=== PATIENT | male | born 1940 | race Caucasian/White ===

== ENCOUNTER 2018-09-24 09:24 | Inpatient (IN) ==
--- OUTSIDE RECORDS SUMMARY | 2018-09-24 09:27 | External Medical Summary | Continuity of Care Document ---
:1940 Author Name Rohit Bearden, Provider Address Unavailable Unavailable , Care Team Providers Name Role Phone Vinicius Shell [email or web address] [email or web address] [email or web address] Unavailable Unavailable Assessments Assessed Problems:Inguinal hernia, right Problems Hypertension (401.9) (I10) History of chemotherapy (V87.41) (Z92.21) Inguinal hernia, right (550.90) (K40.90) Allergies and Adverse Reactions No Known Drug Allergies (Allergy) Medications Diovan 80 MG Oral Tablet; TAKE 1 TABLET DAILY. Start: 20-Feb-2015 Refills: 0 Valtrex 500 MG Oral Tablet; TAKE 1 TABLET DAILY. Start: 20-Feb-2015 Refills: 0 Procedures History of Inguinal Hernia Repair Status : Completed History of Hemorrhoidectomy Status: Comp leted History of Inguinal Hernia Repair - Recurrent Status: Completed 19-Mar-2015 0:00 Immunizations Immunizations not documented Family History Father Family history of hypertension (V17.49) (Z82.49) Status: Act jayson Sister Family history of malignant neoplasm (V16.9) (Z80.9) Status: Active Brother Family history of malignant neoplasm (V16.9) (Z80.9) Status: Active Social History - Smoking Status Former smoker Plan of Treatment Planned Observations Planned Goals not documented Results No Known Results Results not documented Encounters Appointment; Vinicius Shell M.D. 01-May-2015 13:00 Encounter Diagnosis: Problem not documented
[2018-09-24] MEDS ORDERED: SODIUM CHLORIDE 0.9% 1000ML 1,000 ML IV ONE (09:59)
[2018-09-24] MEDS ORDERED: PANTOprazole 80 MG in DEXTROSE 5% 100 ML IV ONE (10:00)
[2018-09-24 10:13] LABS: Hematocrit (blood only) 32.1 % (42-52); Mean Corpuscular Hgb Conc 34.3 g/dL (32-36); Mean Corpuscular Volume 93.3 fL (80-100); RDW Coefficient of Variation 15.2 % (11.5-14.5); RDW Standard Deviation 51.6 fL (36.4-46.3); Red Blood Count 3.44 M/uL (4.7-6.1); White Blood Count 7.48 K/uL (4.8-10.8)
[2018-09-24 10:15] LABS: Mean Platelet Volume 9.7 fL (7.4-10.4); Platelet Count 65 K/uL (130-400)
[2018-09-24 10:33] LABS: Alanine Aminotransferase 24 U/L (12-78); Albumin Level 3.3 gm/dl (3.4-5.0); Aspartate Aminotransferase 19 U/L (15-37); BUN Creatinine Ratio 36.7 (10-20); Bilirubin Direct 0.1 mg/dl (0-0.2); Blood Urea Nitrogen 51 mg/dl (7-18); Calcium 8.3 mg/dl (8.5-10.1); Carbon Dioxide 24 mmol/L (21-32); Chloride 113 mmol/L (98-107); Creatinine Clr Calc Pharmacy 49.4 ml/min; Est GFR (Non-African American) 48.3; Glucose 129 mg/dl (70-99); Magnesium 1.9 mg/dl (1.8-2.4); Sodium 141 mmol/L (136-145)
[2018-09-24 10:36] LABS: INR 1.1 (0.9-1.1); Partial Thromboplastin Ratio 0.9; Partial Thromboplastin Time 23.6 Seconds (21.0-31.0); Prothrombin Time 11.5 Seconds (9.0-12.0)
[2018-09-24 10:38] LABS: Alkaline Phosphatase 82 U/L (45-117); Bilirubin,Total 0.6 mg/dl (0.2-1); Total Protein 6.4 gm/dl (6.4-8.2); Troponin I < 0.015 ng/ml (0-0.045)
--- NOTE | 2018-09-24 10:42 | XRay Report ---
SINGLE VIEW CHEST CLINICAL HISTORY: Hematemesis. FINDINGS: An AP, portable, upright chest radiograph is compared to study dated 03/19/2015. The heart i s top normal for projection and there is atherosclerotic calcification of the thoracic aorta. There i s bibasilar scarring/atelectasis. No airspace consolidation or large pleural effusion is identified. No pneumothorax is seen. The skeletal structures are osteopenic. The bony thorax is grossly intact. IMPRESSION: No acute cardiopulmonary abnormality. Electronically signed by: Partha Dickson M.D. 09/24/2018 10:41 AM
[2018-09-24] MEDS: PANTOprazole 40 MG in DEXTROSE 5% 100 ML IV SCH ×3 (10:45→20:52)
[2018-09-24 10:50] LABS: Basophils # (auto) 0.03 K/uL (0-0.2); Basophils % (auto) 0.4 %; Eosinophils # (auto) 0.05 K/uL (0-0.5); Eosinophils % (auto) 0.7 %; Immature Granulocytes # (auto) 0.01 K/uL (0.00-0.02); Immature Granulocytes % (auto) 0.1 %; Lymphocytes # (auto) 1.36 K/uL (1.2-3.4); Lymphocytes % (auto) 18.2 %; Microcytosis Present; Monocytes # (auto) 0.57 K/uL (0.11-0.59); Monocytes % (auto) 7.6 %; Neutrophils # (auto) 5.46 K/uL (1.4-6.5); Ovalocytes 1+; Platelet Estimate Decreased (Normal)
--- NOTE | 2018-09-24 11:33 | History & Physical Report ---
Date of Service September 24, 2018 Assessment & Plan (1) GI bleed: Woke up at 2:30am on 09/24 with 3 episodes of hematochezia and 1 episode of melena. Went back to bed. Presented to the ED in the morning after further coffee ground emesis. Had colonoscopy over 10 years ago while living in [place] - has not had GI issues in the past, no history of PUD, gastric ulcers, NSAID use, alcohol use. - Hemoglobin was 11.0, baseline appears to be around 12 - Trend H&H every 6 hours - GI consulted - Spoke with Dr. Linares - Continue Protonix gtt, consider switch to famotidine later today as protonix on backorder. 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 Barr as an outpatient. - Platelet count was 65 on admission. Per patient, baseline is ~50. - Transfuse plt for < 50k. - Consider oncology consult if worsening a.m. labs (3) HTN (hypertension): BP stable. Holding antihypertensives with acute GI bleed. - Monitor (4) HLD (hyperlipidemia): - Continue pravastatin 10 mg daily (5) History of shingles: - Hold valacyclovir (6) DVT prophylaxis: -Teds, no chemical prophylaxis in the setting of GI bleed History of Present Illness Primary Care Provider: NO PCP This is a 78 yo M with PMHx of ALL [facility] in 2012, status post chemotherapy now in remission, HTN, HLD, inguinal hernia, history of shingles and remote history of smoking 2 ppd for his entire adult life and quit in 1999, who presents with acute onset of multiple episodes of melena and hematemesis with bright red, dark red and black coffee-ground emesis x1 day. Patient reports that he was in his normal state of health yesterday. He woke up this morning and felt acutely nauseous proceeded to vomit x3 and had several bowel movements with dark tarry stools. He denies any abdominal pain, bloating or distention. He also denies lightheadedness, dizziness, chest pain, palpitation or flutter. He notes that since being in the ER and getting up to ambulate to the bathroom that he has been noticing increased shortness of breath. He does not normally wear oxygen at baseline. Patient has not eating anything since last evening where he consumed a steak. He drinks alcohol about once every other week, last alcoholic drink was a part of beer 4 days ago. He denies use of NSAIDs routinely. He took his medications yesterday. Hemoglobin equals 11, baseline around 12 Pantoprazole drip started in the ER Allergies Allergy/AdvReac Type Severity Reaction Status Date / Time No Known Allergies Allergy Unverified 09/24/18 10:41 Home Medications Home Medications Medication Instructions Recorded Confirmed Type pravastatin 10 mg PO DAILY 03/31/18 03/31/18 History valacyclovir [Valtrex] 500 mg PO DAILY 03/31/18 03/31/18 History valsartan [Diovan] 80 mg PO DAILY 03/31/18 03/31/18 History Past Med/Surg History Medical History History of shingles HLD (hyperlipidemia) HTN (hypertension) ALL (acute lymphoid leukemia) in remission History of smoking GI bleed Recurrent inguinal hernia History of inguinal hernia (Resolved) Surgical History Hx of inguinal hernia repair (Resolved) Family History Other Family history non-contributory Social History Preferred Language: Mongolian Communication Ability: Effective Manager Produce Required: No Beliefs That Will Affect Care: None Current Living Situation: Alone Other Information That Helps Us Care for You: No Feels Safe at Home: Yes Safety Concerns: Feels Safe At This Time Smoking Status: Former smoker Smoking End Date: ~1999 Hx Alcohol Use: Yes Alcohol type: beer and hard liquor Hx Substance Use: No Review of Systems Review of Systems: Constitutional: No fever, sweats or chills Eyes: No diplopia, no worsening or blurred vision ENT: normal hearing, no trouble swallowing Respiratory: No cough, sputum, dyspnea at rest or on exertion Cardiovascular: No chest pain, tightness or palpitations Abdomen: As per HPI, + Hematemesis, + melena, no pain Musculoskeletal: No joint pain, calf pain, swelling Neurologic: No weakness, numbness/tingling, or balance problems Psychiatric: No anxiety or depression Skin: No rash or itch Physical Exam Physical Exam: General: awake, alert, no apparent distress Head: Normocephalic, atraumatic ENT: PERRL, EOMI, no pharyngeal exudate, mucous membranes moist Chest: Clear to auscultation, on room air, no adventitious breath sounds Cardiac: Regular rate and rhythm, no murmur, no JVD, normal peripheral pulses, good capillary refill Abdominal: Hypoactive bowel sounds, nondistended, soft, nontender to palpation, no rebound, guarding or tenderness Extremities: Normal inspection, no peripheral edema or erythema, calfs nontender to palpation Psych: Normal mood and affect Neuro: AAO x 3, strength intact bilaterally and related 5/5, no motor deficits, speech is clear, no peripheral sensory deficits Skin: no rash or erythema Results & Data Vital Signs (Past 12 Hours) Vital Signs Temp Pulse Resp BP Pulse Ox 09/24/18 09:33 36.8 C 130 H 22 114/72 95 Diagnostic Findings SINGLE VIEW CHEST CLINICAL HISTORY: Hematemesis. FINDINGS: An AP, portable, upright chest radiograph is compared to study dated 03/19/2015. The heart is top normal for projection and there is atherosclerotic calcification of the thoracic aorta. There is bibasilar scarring/atelectasis. No airspace consolidation or large pleural effusion is identified. No pneumothorax is seen. The skeletal structures are osteopenic. The bony thorax is grossly intact. IMPRESSION: No acute cardiopulmonary abnormality. Code Status & VTE Plan Code Status Full code-discussed with patient at bedside PG Care Time/CCT Total # of Minutes Spent Total Time Spent with Patient: Total time spent is greater than 50% in coordination of care (as documented) at patient's floor/unit and/or counseling patient:
[2018-09-24] MEDS ORDERED: ONDANSETRON INJ 2 MG/ML 2 ML VIAL IV PRN (14:46)
[2018-09-24] MEDS ORDERED: ACETAMINOPHEN 325 MG TAB PO PRN (14:46)
[2018-09-24] MEDS: SODIUM CHLORIDE 0.9% 1000ML 1,000 ML IV SCH ×2 (15:01→22:26)
[2018-09-24 17:07] LABS: Hematocrit (blood only) 29.9 % (42-52)
--- NOTE | 2018-09-24 17:53 | Emergency Department Note ---
Entered by Jenni Romero acting as a scribe for ED Provider Note Name: Luis Greer Age: 78 Arrives Via: Ambulatory Informant: Patient CC: Blood in vomit HPI: A 78 year old male arrives for evaluation of an episode of vomiting blood 8 hours ago. The patient reports that he vomited blood 3 times earlier this morning, and he described the vomit as really dark. The patient notes he feels a little nauseous at the moment but denies any recent falls or injuries, abdominal pain, headache, shortness of breath, fever/chills, chest pain, and urinary issues. The patient also denies taking blood thinners. The patient states he takes naproxen for headaches, but he notes he has not done this for 3 weeks. The patient reports that he has had 52 blood transfusions for platelets in the past. The patient denies any family history of bleeding issues. ROS: See above HPI for pertinent positives & negatives. A total of 10 systems reviewed and were otherwise negative. Past Medical History: ALL (in remission), HLD, HTN, Shingles Past Surgical History: Inguinal hernia repair Family History: No significant family history Social History: Former smoker, occasional drinker. Retired, no drug use. Home Medications: pravastatin, Diovan Allergies NKDA Physical: Vitals: BP 114/72. Pulse 130. Resp 22. Temp 36.8. O2 Sat 95. Room Air Exam: GENERAL: Patient is tired appearing and in no acute distress. EYES: No scleral icterus, unremarkable pupils. ENT: Mucous membranes dry, no nasal congestion. NECK: No masses appreciated, no meningismus, trachea is midline. RESPIRATORY: No dyspnea. Clear to auscultation and equal bilaterally. No wheeze, no rhonchi. CARDIOVASCULAR: Tachycardic. Regular rhythm. No murmurs, rubs, gallops appreciated. GASTROINTESTINAL: Abdomen soft, non-tender, no peritonitis. Bowel sounds positive. No masses appreciated. BACK: No midline tenderness, no CVA tenderness EXTREMITIES: Normal motion all extremities, no cyanosis, no edema. NEUROLOGIC: Alert and oriented, no acute motor or sensory deficits, no focal weakness, cranial nerves grossly intact. SKIN: No rash, no jaundice, no diaphoresis. RECTAL: Heme positive, black stool. Normal perirectal area. ED Course: Prior Medical Record, Triage/Nursing Notes, Medications, Allergies reviewed by Me Vital Signs: reviewed and remarkable for Labs: Reviewed and remarkable for tachy Interventions: saline lock, nss bolus 1 L IV, protonix gtt Imaging: Radiology results as stated below per my review and the radiologist's interpretation: SINGLE VIEW CHEST CLINICAL HISTORY: Hematemesis. FINDINGS: An AP, portable, upright chest radiograph is compared to study dated 03/19/2015. The heart is top normal for projection and there is atherosclerotic calcification of the thoracic aorta. There is bibasilar scarring/atelectasis. No airspace consolidation or large pleural effusion is identified. No pneumothorax is seen. The skeletal structures are osteopenic. The bony thorax is grossly intact. IMPRESSION: No acute cardiopulmonary abnormality. Electronically signed by: Partha Dickson M.D. 09/24/2018 10:41 AM EKG: Per My Interpretation: Indication Tachy: Sinus tach 122 without ectopy nor ischemia qtc 433 Course: 0950: Past medical records reviewed. The patient was evaluated in room B12B. A complete history and physical exam was performed. 1023: I performed a rectal exam on the patient. 1036: I discussed the case with Dr. Timmons. Dr. Linares deems it is reasonable to monitor the patient here due to labs. 1104: I discussed the patient's case with Camilla of Dr. Baeza-[facility]. Dr. Baeza will further evaluate the patient. Blood pressure: Normal. No Referral necessary Disposition: Hospitalization Differentials: Etiologies such as diverticulosis, AVM, coagulopathy, colitis, inflammatory bowel disease, malignancy, Ernestine-Mcdonald tear, esophagitis, peptic ulcer disease, variceal bleed, gastritis, epistaxis, fissure, hemorrhoids, as well as others were entertained. 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 Some red to stool but mostly black. He is comfortable without further symptoms. Mild tachy thus given fluids as he appears a bit on dehydrated side. HR improved nicely. HgB 11 where base is about 12 so no indication for transfusion given BP good and HR improved with IV fluids. Platelets actually a bit up from his baseline. Labs otherwise with BUn elevation consistent with GI bleed an dehydration. EKG without ischemia. Otherwise looks well. No recent blood thinner use and last naproxen was 3 weeks ago. Reviewed with GI and Onc who feel it reasonable to keep patient here at this time and monitor. Hospitalist consulted for further management. Abdomen soft and I do not feel that imaging indicated. Impression: Acute Upper GI Bleed Tachycardia Thrombocytopenia The scribe's documentation has been prepared under my direction and personally reviewed by me in its entirety. I confirm that the note above accurately reflects all work, treatment, procedures, and medical decision making performed by me. Amos Aburto MD Impression & Plan Acute upper gastrointestinal bleeding, Thrombocytopenia, Tachycardia Past Med/Surg History Medical History History of shingles HLD (hyperlipidemia) HTN (hypertension) ALL (acute lymphoid leukemia) in remission History of smoking GI bleed Recurrent inguinal hernia History of inguinal hernia (Resolved) Surgical History Hx of inguinal hernia repair (Resolved) Family History Other Family history non-contributory Social History Preferred Language: Turkmen Communication Ability: Effective Spiral Binder Required: No Beliefs That Will Affect Care: None Current Living Situation: Alone Other Information That Helps Us Care for You: No Feels Safe at Home: Yes Safety Concerns: Feels Safe At This Time Smoking Status: Former smoker Smoking End Date: ~1999 Hx Alcohol Use: Yes Alcohol type: beer and hard liquor Hx Substance Use: No Results & Data Vital Signs Vital Signs - 24 hr 09/24/18 09:33 09/24/18 09:59 09/24/18 10:43 Temperature 36.8 C Temperature Source Oral Oral Sepsis Recent Fever Within 48 Hours No Sepsis New/Unexplained Change in Mental Status No Sepsis Action Taken by Nursing No Action Required Pulse Rate 130 H Pulse Rate [Right Finger] 94 H Respiratory Rate 22 18 Respiratory Effort / Characteristics Non-Labored Respiratory Depth Normal Normal Blood Pressure 114/72 Blood Pressure [Left Arm] 114/64 Blood Pressure Mean 86 Blood Pressure Mean [Left Arm] 80 Blood Pressure Position Sitting Pulse Oximetry 95 96 Oxygen Delivery Method Room Air Laboratory Data Result diagrams: 09/24/18 16:59 09/24/18 10:05 Lab Results 09/24/18 09/24/18 09/24/18 Range/Units 10:05 10:05 10:05 WBC 7.48 (4.8-10.8) K/uL RBC 3.44 L (4.7-6.1) M/uL Hgb 11.0 L (14.0-18.0) g/dL Hct 32.1 L (42-52) % MCV 93.3 (80-100) fL MCH 32.0 (25-34) pg MCHC 34.3 (32-36) g/dL RDW Std Deviation 51.6 H (36.4-46.3) fL RDW Coeff of Tere 15.2 H (11.5-14.5) % Plt Count 65 L (130-400) K/uL MPV 9.7 (7.4-10.4) fL Immature Gran % (Auto) 0.1 % Neut % (Auto) 73.0 % Lymph % (Auto) 18.2 % Mclennan % (Auto) 7.6 % Eos % (Auto) 0.7 % Baso % (Auto) 0.4 % Immature Gran # (Auto) 0.01 (0.00-0.02) K/uL Neut # (Auto) 5.46 (1.4-6.5) K/uL Lymph # (Auto) 1.36 (1.2-3.4) K/uL Mclennan # (Auto) 0.57 (0.11-0.59) K/uL Eos # (Auto) 0.05 (0-0.5) K/uL Baso # (Auto) 0.03 (0-0.2) K/uL Platelet Estimate Decreased L (Normal) Microcytosis Present Ovalocytes 1+ PT 11.5 (9.0-12.0) Seconds INR 1.1 (0.9-1.1) APTT 23.6 (21.0-31.0) Seconds PTT Ratio 0.9 Sodium 141 (136-145) mmol/L Potassium 5.0 (3.5-5.1) mmol/L Chloride 113 H (98-107) mmol/L Carbon Dioxide 24 (21-32) mmol/L Anion Gap 4.0 (3-11) BUN 51 H (7-18) mg/dl Creatinine 1.38 (0.6-1.4) mg/dl Est Cr Clr Drug Dosing 49.4 ml/min Est GFR ( Amer) 56.0 Est GFR (Non-Af Amer) 48.3 BUN/Creatinine Ratio 36.7 H (10-20) Glucose 129 H (70-99) mg/dl Calcium 8.3 L (8.5-10.1) mg/dl Magnesium 1.9 (1.8-2.4) mg/dl Total Bilirubin 0.6 (0.2-1) mg/dl Direct Bilirubin 0.1 (0-0.2) mg/dl AST 19 (15-37) U/L ALT 24 (12-78) U/L Alkaline Phosphatase 82 (45-117) U/L Troponin I < 0.015 (0-0.045) ng/ml Total Protein 6.4 (6.4-8.2) gm/dl Albumin 3.3 L (3.4-5.0) gm/dl Lipase 190 (73-393) U/L Blood Type Antibody Screen 09/24/18 Range/Units 10:21 WBC (4.8-10.8) K/uL RBC (4.7-6.1) M/uL Hgb (14.0-18.0) g/dL Hct (42-52) % MCV (80-100) fL MCH (25-34) pg MCHC (32-36) g/dL RDW Std Deviation (36.4-46.3) fL RDW Coeff of Tere (11.5-14.5) % Plt Count (130-400) K/uL MPV (7.4-10.4) fL Immature Gran % (Auto) % Neut % (Auto) % Lymph % (Auto) % Mclennan % (Auto) % Eos % (Auto) % Baso % (Auto) % Immature Gran # (Auto) (0.00-0.02) K/uL Neut # (Auto) (1.4-6.5) K/uL Lymph # (Auto) (1.2-3.4) K/uL Mclennan # (Auto) (0.11-0.59) K/uL Eos # (Auto) (0-0.5) K/uL Baso # (Auto) (0-0.2) K/uL Platelet Estimate (Normal) Microcytosis Ovalocytes PT (9.0-12.0) Seconds INR (0.9-1.1) APTT (21.0-31.0) Seconds PTT Ratio Sodium (136-145) mmol/L Potassium (3.5-5.1) mmol/L Chloride (98-107) mmol/L Carbon Dioxide (21-32) mmol/L Anion Gap (3-11) BUN (7-18) mg/dl Creatinine (0.6-1.4) mg/dl Est Cr Clr Drug Dosing ml/min Est GFR ( Amer) Est GFR (Non-Af Amer) BUN/Creatinine Ratio (10-20) Glucose (70-99) mg/dl Calcium (8.5-10.1) mg/dl Magnesium (1.8-2.4) mg/dl Total Bilirubin (0.2-1) mg/dl Direct Bilirubin (0-0.2) mg/dl AST (15-37) U/L ALT (12-78) U/L Alkaline Phosphatase (45-117) U/L Troponin I (0-0.045) ng/ml Total Protein (6.4-8.2) gm/dl Albumin (3.4-5.0) gm/dl Lipase (73-393) U/L Blood Type O Positive Antibody Screen NEGATIVE Administered Medications Pantoprazole Sodium 40 mg/ (Dextrose) 100 mls @ 20 mls/hr IV Q5H [facility] Stop: 10/24/18 10:14 Last Admin: 09/24/18 16:00 Dose: 20 mls/hr Documented by: [id number] Infusion: 09/24/18 14:47 Dose: 0 mls/hr Documented by: [id number] Admin: 09/24/18 10:45 Dose: 20 mls/hr Documented by: [id number] Sodium Chloride (Nss 1000ml) 1,000 mls @ 125 mls/hr IV .Q8H [facility] Stop: 09/25/18 14:45 Last Admin: 09/24/18 15:01 Dose: 125 mls/hr Documented by: [id number] Discontinued Medications Pantoprazole Sodium 80 mg/ (Dextrose) 120 mls @ 480 mls/hr IV NOW ONE Stop: 09/24/18 10:14 Last Infusion: 09/24/18 10:58 Dose: 0 mls/hr Documented by: [id number] Admin: 09/24/18 10:43 Dose: 480 mls/hr Documented by: [id number] Sodium Chloride (Nss 1000ml) 1,000 mls @ 999 mls/hr IV .Q1H1M ONE Stop: 09/24/18 10:59 Last Infusion: 09/24/18 11:12 Dose: 0 mls/hr Documented by: [id number] Admin: 09/24/18 10:10 Dose: 999 mls/hr Documented by: [id number] Discharge Plan Visit Data *Final* Discharge Date/Time: 09/24/18 14:15 Chief Complaint: GI Bleed Stated Complaint: VOMITING BLOOD, BOWEL MOVEMENT BLACK ED Provider: Amos Aburto Discharge Problem: Acute upper gastrointestinal bleeding, Thrombocytopenia, Tachycardia Patient Disposition: Admitted As Inpatient Discharge Instructions Interventions: ED Discharge Assessment Last Done: 09/24/18 14:15 The scribe's documentation has been prepared under my direction and personally reviewed by me in its entirety. I confirm that the note above accurately reflects all work, treatment, procedures, and medical decision making performed by me.
[2018-09-24 23:34] LABS: Hematocrit (blood only) 27.9 % (42-52); Hemoglobin 9.5 g/dL (14.0-18.0)
[2018-09-25] MEDS: PANTOprazole 40 MG in DEXTROSE 5% 100 ML IV SCH ×5 (00:39→20:14)
[2018-09-25] MEDS: SODIUM CHLORIDE 0.9% 1000ML 1,000 ML IV SCH (05:49)
[2018-09-25 06:06] LABS: Hematocrit (blood only) 27.5 % (42-52); Hemoglobin 9.2 g/dL (14.0-18.0); Mean Corpuscular Hgb Conc 33.5 g/dL (32-36); Mean Corpuscular Volume 93.2 fL (80-100); RDW Coefficient of Variation 15.6 % (11.5-14.5); RDW Standard Deviation 52.6 fL (36.4-46.3); Red Blood Count 2.95 M/uL (4.7-6.1); White Blood Count 4.65 K/uL (4.8-10.8)
[2018-09-25 06:07] LABS: Mean Platelet Volume 9.9 fL (7.4-10.4); Platelet Count 54 K/uL (130-400)
[2018-09-25 06:16] LABS: INR 1.1 (0.9-1.1); Prothrombin Time 11.5 Seconds (9.0-12.0)
[2018-09-25 06:45] LABS: BUN Creatinine Ratio 35.2 (10-20); Calcium 7.8 mg/dl (8.5-10.1); Creatinine Clr Calc Pharmacy 54.5 ml/min; Est GFR (African American) 63.1; Est GFR (Non-African American) 54.4; Potassium 3.9 mmol/L (3.5-5.1)
[2018-09-25 06:53] LABS: Albumin Globulin Ratio 1.2 (0.9-2); Bilirubin,Total 0.8 mg/dl (0.2-1); Globulin 2.6 gm/dl (2.5-4.0); Total Protein 5.6 gm/dl (6.4-8.2)
--- NOTE | 2018-09-25 07:32 | Anesthesiology Consultation ---
Date of Service September 25, 2018 Assessment & Plan (1) Encounter for pre-operative examination: Chart Review Chart Review: Acceptable Risk for Surgery Consults Requested none ASA ASA3 Proposed Anesthesia Anesthesia Type: MAC Risk / Benefits Reviewed With: PT / POA / Parent / Guardian, Accepts Plan and Informed Consent Obtained History Surgery Operation Date: 09/25/18 09:00 Proposed Procedures p Esophagogastroduodenoscopy - Vadim G. Case, DO Height/Weight Height: 5 ft 10 in Weight: 92 kg Allergies Allergy/AdvReac Type Severity Reaction Status Date / Time No Known Allergies Allergy Unverified 09/24/18 10:41 Medications Home Medications Medication Instructions Recorded Confirmed Last Taken pravastatin 10 mg PO DAILY 03/31/18 03/31/18 Unknown valacyclovir [Valtrex] 500 mg PO DAILY 03/31/18 03/31/18 Unknown valsartan [Diovan] 80 mg PO DAILY 03/31/18 03/31/18 Unknown Active Medications Generic Name Dose Route Start Last Admin Trade Name Freq PRN Reason Stop Dose Admin Pantoprazole Sodium 40 mg/ 100 mls @ 20 mls/hr 09/24/18 10:15 09/25/18 05:48 Dextrose IV 10/24/18 10:14 20 mls/hr Q5H EMMA Administration Sodium Chloride 1,000 mls @ 125 mls/hr 09/24/18 14:46 09/25/18 05:49 Nss 1000ml IV 09/25/18 14:45 125 mls/hr .Q8H EMMA Administration Pravastatin Sodium 10 mg 09/25/18 09:00 09/25/18 08:24 Pravachol PO 10/25/18 08:59 10 mg DAILY EMMA Administration Past Medical History Medical History History of shingles HLD (hyperlipidemia) HTN (hypertension) ALL (acute lymphoid leukemia) in remission GI bleed Recurrent inguinal hernia History of inguinal hernia (Resolved) Exercise / Class Metabolic Activity II 4-5 Yardwork/Stairs/Walk up hill Past Family History Family History Other Family history non-contributory Past Surgical History Surgical History Hx of inguinal hernia repair (Resolved) Past Anesthesia History No Hx of Anesthesia Complications and No Family Hx of Anesthesia Complications History of PONV No Hx of PONV and No Hx of Motion Sickness Social History Smoking Status: Former smoker Smoking End Date: ~1999 Hx Alcohol Use: Yes Alcohol type: beer and hard liquor Alcohol Intake Frequency Comment: ~ 1 drink/week Hx Substance Use: No Physical Exam Vital Signs Last Vital Signs Temp 97.9 F 09/25/18 07:15 Pulse 75 09/25/18 07:59 Resp 16 09/25/18 07:15 BP 128/76 09/25/18 07:15 Pulse Ox 98 09/25/18 07:15 ENMT Mouth: no dentition abnormality Thyromental Distance: > or= 3.5 Finger Breadths Mallampati Class: II Neck normal visual inspection Respiratory normal respiratory effort Auscultation: lungs clear to auscultation bilaterally Cardiovascular Rate/Rhythm: regular rate and regular rhythm Testing Laboratory Results 09/25/18 05:39 09/25/18 05:39 PT 11.5 Seconds (9.0-12.0) 09/25/18 05:39 INR 1.1 (0.9-1.1) 09/25/18 05:39 APTT 23.6 Seconds (21.0-31.0) 09/24/18 10:05 Blood Type O Positive 09/24/18 10:21 Antibody Screen NEGATIVE 09/24/18 10:21 Electrocardiogram Date: 09/24/18 Sinus tachycardia, rate 122 bpm Low voltage QRS Inferior infarct , age undetermined Possible Anterolateral infarct , age undetermined Abnormal ECG No previous ECGs available Chest X-Ray Date: 09/24/18 Findings: + NAD
--- NOTE | 2018-09-25 08:50 | History & Physical Report ---
Date of Service September 25, 2018 Assessment & Plan (1) Acute upper gastrointestinal bleeding: (2) Melena: (3) Acute blood loss anemia: Continue Protonix gtt. NPO Proceed with EGD now for further evaluation of bleeding source History of Present Illness Chief Complaint: "I threw up blood, and have been having black stools." Primary Care Provider: NO PCP Mr. Greer is a pleasant 78 yo CM who was in his normal state of health on Wednesday. Early Wednesday morning, he woke up with nausea, and subsequently had 2 episodes of bright red and coffee ground emesis. He states that approximately 1 hour later he developed dark tarry stools, and has been having them every 30-40 minutes since that time. He presented to the ER for further evaluation, and was noted to have a Hgb of 11. He was subsequently admitted and placed on a Protonix gtt. His H/H has continued to fall, and he continues to have dark tarry stools. He does admit to taking Naproxen as needed for headaches, but states that it is minimal approximately 2-3 times per week. He denies lightheadedness, dizziness, syncope, abdominal pain, nausea, further vomiting, diarrhea, or family history of GI malignancies. He states that he has minimal home symptoms of GERD, that is controlled with OTC antacids 1-2 times per month. He denies any further complaints. Allergies Allergy/AdvReac Type Severity Reaction Status Date / Time No Known Allergies Allergy Unverified 09/24/18 10:41 Home Medications Home Medications Medication Instructions Recorded Confirmed Type pravastatin 10 mg PO DAILY 03/31/18 03/31/18 History valacyclovir [Valtrex] 500 mg PO DAILY 03/31/18 03/31/18 History valsartan [Diovan] 80 mg PO DAILY 03/31/18 03/31/18 History Past Med/Surg History Medical History History of shingles HLD (hyperlipidemia) HTN (hypertension) ALL (acute lymphoid leukemia) in remission History of smoking GI bleed Recurrent inguinal hernia History of inguinal hernia (Resolved) Surgical History Hx of inguinal hernia repair (Resolved) Family History Other Family history non-contributory Social History Preferred Language: Tanzanian Communication Ability: Effective Layout Mechanic Required: No Beliefs That Will Affect Care: None Current Living Situation: Alone Other Information That Helps Us Care for You: No Feels Safe at Home: Yes Safety Concerns: Feels Safe At This Time Smoking Status: Former smoker Smoking End Date: ~1999 Hx Alcohol Use: Yes Alcohol type: beer and hard liquor Hx Substance Use: No Review of Systems All systems reviewed & are unremarkable except as noted in HPI & below Physical Exam Constitutional: WD/WN, vitals as above Respiratory: normal respiratory effort, lungs clear to auscultation Cardiovascular: RRR, no murmur, no edema Gastrointestinal (Abdomen): normal bowel sounds, soft, nontender, no hepatosplenomegaly Results & Data Vital Signs (Past 12 Hours) Vital Signs Temp Pulse Pulse Resp BP Pulse Ox 09/25/18 07:59 75 09/25/18 07:15 36.6 C 78 16 128/76 98 09/25/18 03:39 36.5 C 78 16 111/69 97 09/25/18 00:43 86 09/24/18 23:33 36.4 C L 100 H 16 130/78 97
[2018-09-25] MEDS ORDERED: PRAVASTATIN SOD 10 MG TAB PO SCH (09:00)
[2018-09-25] MEDS ORDERED: ATROPINE SULFATE 0.1 MG/ML 10ML SYR IV PRN (09:28)
[2018-09-25] MEDS ORDERED: ePHEDrine sulfate 50 MG/ML AMP IV PRN (09:28)
[2018-09-25] MEDS ORDERED: LIDOCAINE HCL 2% 2 ML VIAL/AMP(20MG/ML) INFIL ONE (09:31)
[2018-09-25] MEDS ORDERED: PROPOFOL IV EMULSION 10 MG/ML 20 ML VIAL IV ONE ×2 (09:31→09:54)
--- NOTE | 2018-09-25 10:13 | GI REPORT ---
Patient Name: Luis Greer Procedure Date: 09/25/2018 8:28 AM Date of : 1940 Admit Type: Inpatient Age: 78 Gender: Male Attending MD: Vadim Linares DO Procedure: Upper GI endoscopy Providers: Vadim Linares DO Referring MD: Carmine Baeza Md Indications: Acute post hemorrhagic anemia, Melena Medicines: Monitored Anesthesia Care Complications: No immediate complications. Estimated Blood Loss: Estimated blood loss: none. Procedure: Pre-Anesthesia Assessment: - Prior to the procedure, a History and Physical was performed, and patient medications and allergies were reviewed. The patient's tolerance of previous anesthesia was also reviewed. The risks and benefits of the procedure and the sedation options and risks were discussed with the patient. All questions were answered, and informed consent was obtained. Prior Anticoagulants: The patient has taken no previous anticoagulant or antiplatelet agents. ASA Grade Assessment: III - A patient with severe systemic disease. After reviewing the risks and benefits, the patient was deemed in satisfactory condition to undergo the procedure. After obtaining informed consent, the endoscope was passed under direct vision. Throughout the procedure, the patient's blood pressure, pulse, and oxygen saturations were monitored continuously. The Scope was introduced through the mouth, and advanced to the second part of duodenum. The upper GI endoscopy was accomplished without difficulty. The patient tolerated the procedure well. Findings: Grade I varices were found in the lower third of the esophagus. They were 4 mm in largest diameter. A single 20 mm mucosal papule (nodule) with bleeding was found at the gastroesophageal junction. Biopsies were taken with a cold forceps for histology. Area was successfully injected with 4 mL of a 1:10,000 solution of epinephrine for hemostasis. Fulguration to stop the bleeding by heater probe was successful. A medium-sized hiatal hernia was present. Localized moderate inflammation characterized by congestion (edema) was found in the gastric antrum. Patchy moderately erythematous mucosa without active bleeding and with no stigmata of bleeding was found in the first portion of the duodenum. A single 20 mm mucosal nodule with a localized distribution was found in the second portion of the duodenum. Impression: - Grade I esophageal varices. - A single mucosal papule (nodule) found in the stomach. Biopsied. Injected. Treated with a heater probe. - Medium-sized hiatal hernia. - Gastritis. - Erythematous duodenopathy. - Mucosal nodule found in the duodenum. Recommendation: - Return patient to [facility] for ongoing care. - Advance diet as tolerated. - Continue present medications. - Perform a CT scan (computed tomography) of abdomen with contrast and pelvis with contrast today. Vadim Linares, DO 09/25/2018 10:12:52 AM This report has been signed electronically. Note Initiated On: 09/25/2018 8:28 AM Number of Addenda: 0 I attest to the content of the Intraoperative Record and orders documented therein, exceptions below {[id number]}
--- NOTE | 2018-09-25 10:32 | Anesthesiology Progress Note ---
Date of Service September 25, 2018 Anesthesia Post Procedure Vital Signs Vital Signs: Temp Pulse Pulse Pulse Resp BP Pulse Ox 09/25/18 10:25 84 15 135/66 100 09/25/18 10:15 86 16 135/78 100 09/25/18 10:08 97.9 F 86 10 L 114/71 100 09/25/18 07:59 75 09/25/18 07:15 97.9 F 78 16 128/76 98 09/25/18 03:39 97.7 F 78 16 111/69 97 09/25/18 00:43 86 09/24/18 23:33 97.5 F L 100 H 16 130/78 97 09/24/18 18:37 98.1 F 87 17 113/71 97 09/24/18 14:35 98.1 F 107 H 16 149/83 H 98 09/24/18 12:41 93 H 18 106/62 98 09/24/18 10:43 94 H 18 114/64 96 Transfer of Care Handoff Completed per policy Notes Mental Status: alert / awake / arousable and participated in evaluation Patient Amnestic to Procedure: Yes Nausea / Vomiting: adequately controlled Pain: adequately controlled Airway Patency, RR, SpO2: stable & adequate BP & HR: stable & adequate Hydration State: stable & adequate Anesthetic Complications: no major complications apparent and Pt Satisfied with anesthetic care
[2018-09-25] MEDS ORDERED: IOVERSOL 100ml IV PRN (15:02)
--- NOTE | 2018-09-25 16:03 | CT Scan Report ---
CT SCAN OF THE ABDOMEN AND PELVIS WITH IV CONTRAST CLINICAL HISTORY: Upper abdominal pain. Clinical concern for cirrhosis. COMPARISON STUDY: No priors. TECHNIQUE: Following the IV administration of 94 cc of Optiray 320, CT scan of the abdomen and pelvi s is performed from the lung bases to the proximal femora. Images are reviewed in the axial, sagittal , and coronal planes. IV contrast was administered without complication. Oral contrast was utilized. A dose lowering technique was utilized adhering to the principles of ALARA. CT DOSE: 647.74 mGy.cm FINDINGS: Lung bases: The heart is top normal in size and without pericardial effusion. The coronary arteries a re densely calcified. Emphysematous change is suspected. There is bibasilar scarring/atelectasis. No airspace consolidation or pleural effusion is seen. Scattered calcified granulomas are observed. Ther e is a moderate hiatal hernia. Liver: The contrast-enhanced liver is normal in size and heterogeneous in attenuation. Nodularity of the surface contour indicates cirrhosis. There is hypertrophy of the left lobe and caudate. Scattered renal cysts measure up to 2.1 cm. Additional subcentimeter hepatic hypodensities also likely represe nt cysts but are too small for definitive characterization. There is no intrahepatic biliary ductal d ilatation. There is nonocclusive thrombus identified within the splenic vein (image #159), the superi or mesenteric vein below the confluence (image #181, and the main portal vein extending into the intr ahepatic portal veins (image #159). There is approximately 50% luminal narrowing of the main portal v ein. The intrahepatic portal venous branches appear patent. The hepatic veins are patent. A calcified granuloma is noted in the right lobe. Gallbladder: Unremarkable. Spleen: The spleen is enlarged measuring 17.6 cm in length. Foci of parenchymal scarring/fibrosis are suggested. Pancreas: Unremarkable. Adrenal glands: Unremarkable. Kidneys: The contrast enhanced kidneys demonstrate cortical atrophy and are without hydronephrosis. T he kidneys enhance symmetrically. There are numerous bilateral nonobstructing renal calculi which kel sure up to 5 mm. Scattered subcentimeter cortical hypodensities likely represent cysts but are too sm all for definitive characterization. Abdominal vasculature: There is advanced atherosclerotic calcification and mild ectasia of the abdomi nal aorta. Intraluminal thrombus causes approximately 50% luminal narrowing just above the iliac bifu rcation. Bowel: There is advanced colonic diverticulosis without CT evidence of acute diverticulitis. Enteric contrast reaches the right colon. No bowel obstruction is seen. Mild wall thickening is noted involvi ng the rectosigmoid colon. There is significant wall thickening and edema identified in the cecum and ascending colon, as well as involving the distal small bowel. This is greatest involving the distal/ terminal ileum. A duodenal lipoma is incidentally noted on image #195. The appendix is well-visualiz ed and normal. Peritoneum: There is a trace perihepatic ascites. No intraperitoneal free air is seen. Lymphadenopathy: None. Pelvic viscera: The prostate gland is enlarged and heterogeneous, measuring 5.6 cm in transverse diam eter. There is median lobe hypertrophy. The bladder is mildly distended. The bladder wall is thickene d and trabeculated indicating chronic outlet obstruction. A 3.3 cm diverticulum containing a bladder calculus is seen posteriorly on the right on image #419. A left inguinal hernia contains fat and asci tic fluid. Skeletal structures: The skeletal structures are osteopenic. No lytic or blastic lesions are seen. IMPRESSION: 1. The liver is cirrhotic in morphology and heterogeneous in attenuation. 2. Trace abdominal ascites and splenomegaly indicate portal hypertension. 3. There is nonocclusive thrombus identified within the splenic vein, the superior mesenteric vein, a nd the main portal vein as above. 4. There is significant wall thickening and edema identified involving the right colon, as well as th e distal small bowel. Milder wall thickening is seen within the sigmoid colon. Although this could be related to cirrhosis and portal colopathy, the appearance is more suggestive of a nonspecific entero colitis and clinical correlation will be required. 5. Bilateral nephrolithiasis. 6. Prostatomegaly with evidence of chronic bladder outlet obstruction. 7. A calculus is contained within a large bladder diverticulum. 8. Suspect emphysema. 9. Additional findings as above. Electronically signed by: Partha Dickson M.D. 09/25/2018 4:00 PM
--- NOTE | 2018-09-25 16:22 | Hospitalist Progress Note ---
Date of Service September 25, 2018 Assessment & Plan (1) GI bleed: Woke up at 2:30am on 09/24 with 3 episodes of hematochezia and 1 episode of melena. Went back to bed. Presented to the ED in the morning after further coffee ground emesis. Had colonoscopy over 10 years ago while living in [place] - has not had GI issues in the past, no history of PUD, gastric ulcers, NSAID use, alcohol use. - Baseline hgb appears to be around 12 - Down to 9.2 by 09/25 - Started on Protonix gtt - Will start ceftriaxone for SBP prophylaxis - Not a variceal bleed, so no octreotide. (2) Cirrhosis: EGD showed varices, nodules, gastritis, and duodenal erythema. CT a/p on 09/25 showed liver morphology consistent with cirrhosis. - New diagnosis; unclear etiology - Will get hepatitis labs, ceruloplasmin, iron studies, autoimmune antibodies - CT a/p also shows non-occlusive thrombus identified within the splenic vein, the superior mesenteric vein, and the main portal vein. Given his low platelets and current GI bleed (though now controlled), I do not feel we can use anticoagulation or anti-platelet agents at this time. Will follow up with GI. 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 Barr as an outpatient. - Platelet count was 65 on admission. Per patient, baseline is ~50. - Transfuse plt for < 50k. (4) HTN (hypertension): BP stable. Holding antihypertensives with acute GI bleed. - Monitor (5) HLD (hyperlipidemia): - Stopped pravastatin 10 mg daily on 09/25 for cirrhosis (6) History of shingles: - Hold valacyclovir (7) DVT prophylaxis: -Teds, no chemical prophylaxis in the setting of GI bleed Subjective Having further episodes of melenic stools, but no hematemesis. Review of Systems Review of Systems: All systems reviewed & are unremarkable except as noted in HPI & below Physical Exam Constitutional: WD/WN, vitals as above Eyes: EOM intact bilaterally; no conjunctival abnormality ENMT: external ear and nose normal, oropharynx normal Neck: trachea midline, no thyromegaly normal visual inspection Respiratory: normal respiratory effort, lungs clear to auscultation no respiratory distress Cardiovascular: Rate/Rhythm: regular rate and + tachycardic Gastrointestinal (Abdomen): Inspection/Auscultation: abdomen normal to inspection; abdomen not distended Musculoskeletal: no cyanosis or clubbing, extremities motor strength 5/5 Skin: + ecchymosis Neurologic: moves all extremities and awake Psychiatric: Orientation: alert, oriented to person and cooperative Results & Data Vital Signs (Past 12 Hours) Vital Signs Temp Pulse Pulse Pulse Resp BP Pulse Ox 09/25/18 11:50 99 H 18 119/75 99 09/25/18 11:35 84 16 119/75 97 09/25/18 11:20 82 16 129/77 98 09/25/18 10:50 36.5 C 76 16 133/73 98 09/25/18 10:35 36.6 C 88 16 144/78 H 100 09/25/18 10:25 84 15 135/66 100 09/25/18 10:15 86 16 135/78 100 09/25/18 10:08 36.6 C 86 10 L 114/71 100 09/25/18 07:59 75 09/25/18 07:15 36.6 C 78 16 128/76 98 PG Care Time/CCT Total # of Minutes Spent Total Time Spent with Patient: Total time spent is greater than 50% in coordination of care (as documented) at patient's floor/unit and/or counseling patient:
[2018-09-25] MEDS ORDERED: cefTRIAXone SODIUM 1,000 MG in DEXTROSE 5% 50 ML IV SCH (16:30)
[2018-09-25 17:24] LABS: Ferritin 69.8 ng/ml (8-388)
[2018-09-25] MEDS: cefTRIAXone SODIUM 2,000 MG in DEXTROSE 5% 50 ML IV SCH (17:55)
[2018-09-25 18:03] LABS: Hepatitis B Surface Antibody Non-Immune
[2018-09-25 18:14] LABS: Hepatitis B Surface Antigen Neg (Neg)
[2018-09-25 18:42] LABS: Hepatitis C IgG 13Yrs+Old_Rflx Neg (Neg)
[2018-09-25 19:23] LABS: Hematocrit (blood only) 27.7 % (42-52); Hemoglobin 9.3 g/dL (14.0-18.0); Mean Corpuscular Hgb Conc 33.6 g/dL (32-36); Mean Corpuscular Volume 93.3 fL (80-100); RDW Coefficient of Variation 15.7 % (11.5-14.5); RDW Standard Deviation 53.5 fL (36.4-46.3); Red Blood Count 2.97 M/uL (4.7-6.1)
[2018-09-25 19:42] LABS: Mean Platelet Volume 9.2 fL (7.4-10.4); Platelet Count 51 K/uL (130-400)
[2018-09-25 19:43] LABS: Basophils # (auto) 0.02 K/uL (0-0.2); Basophils % (auto) 0.4 %; Eosinophils # (auto) 0.13 K/uL (0-0.5); Eosinophils % (auto) 2.4 %; Immature Granulocytes # (auto) 0.01 K/uL (0.00-0.02); Immature Granulocytes % (auto) 0.2 %; Lymphocytes # (auto) 1.33 K/uL (1.2-3.4); Lymphocytes % (auto) 24.6 %; Monocytes # (auto) 0.43 K/uL (0.11-0.59); Neutrophils # (auto) 3.48 K/uL (1.4-6.5); Neutrophils % (auto) 64.4 %
[2018-09-26] MEDS: PANTOprazole 40 MG in DEXTROSE 5% 100 ML IV SCH ×5 (01:37→21:44)
[2018-09-26 06:01] LABS: Hematocrit (blood only) 25.7 % (42-52); Hemoglobin 8.7 g/dL (14.0-18.0); Mean Corpuscular Hgb Conc 33.9 g/dL (32-36); Mean Corpuscular Volume 91.5 fL (80-100); RDW Coefficient of Variation 15.7 % (11.5-14.5); RDW Standard Deviation 53.3 fL (36.4-46.3); Red Blood Count 2.81 M/uL (4.7-6.1); White Blood Count 4.08 K/uL (4.8-10.8)
[2018-09-26 06:06] LABS: Mean Platelet Volume 9.4 fL (7.4-10.4); Platelet Count 48 K/uL (130-400)
[2018-09-26 06:47] LABS: Albumin Globulin Ratio 1.2 (0.9-2); Albumin Level 3.1 gm/dl (3.4-5.0); BUN Creatinine Ratio 22.2 (10-20); Bilirubin,Total 0.8 mg/dl (0.2-1); Calcium 7.8 mg/dl (8.5-10.1); Creatinine Clr Calc Pharmacy 53.5 ml/min; Est GFR (African American) 61.3; Est GFR (Non-African American) 52.9; Globulin 2.5 gm/dl (2.5-4.0); Potassium 3.5 mmol/L (3.5-5.1); Total Protein 5.6 gm/dl (6.4-8.2)
[2018-09-26] MEDS ORDERED: NADOLOL 40 MG TAB PO SCH (09:00)
--- NOTE | 2018-09-26 09:16 | Gastroenterology Progress Note ---
Date of Service September 26, 2018 Assessment & Plan (1) Cirrhosis: -Added Nadolol 40 mg daily -Continue PPI on discharge -Will need AFP and liver imaging q 6 months for HCC surveillance -Avoid substances harmful to the liver -Outpatient follow-up Present on Admission?: Yes (2) GI bleed: s/p EGD that indicated grade 1 esophageal varices, a nodule with recent bleeding, & inflammation of the duodenum. H/H 8.7/25.7. -Continue to monitor H/H -Continue PPI drip at present -Continue to monitor for further s/s of bleeding Thank you for allowing us to participate in the care of this patient. If you should have any further questions or concerns, do not hesitate to contact us at extension [phone] or [phone]. Present on Admission?: Yes Supervising Physician Co-Signing Physician Notes Agree with FARIDA Javier as above Abd: Soft, NT, ND, +BS Continue twice daily PPI therapy Await pathology results Cirrhotic appearance of liver on CT imaging and non-bleeding esophageal varices (Grade I) therefore, will start nadolol 40 mg by mouth daily Noted splenomegaly and thrombus in multiple vessels, however, with current GI bleed, would not recommend any anticoagulation at present, as these are probably chronic He was instructed to followup with us as an outpatient for further evaluation and recommendations. Subjective Patient is a 78 yo male with cirrhosis and GI bleeding. He denies further bleeding. He reports he tolerated a breakfast this AM. He denies any further symptoms. His H/H is 8.7/25.7. He is on a Protonix infusion at present. Review of Systems Constitutional: no fever and no chills Respiratory: no cough and no dyspnea Cardiovascular: no chest pain Gastrointestinal: no abdominal pain, no vomiting, no coffee ground emesis, no blood in stools and no melena Physical Exam Constitutional: WD/WN, vitals as above Respiratory: normal respiratory effort, lungs clear to auscultation Cardiovascular: Rate/Rhythm: regular rate and regular rhythm Gastrointestinal (Abdomen): normal bowel sounds, soft, nontender, no hepatosplenomegaly Skin: no rashes, warm and dry Results & Data Vital Signs (Past 12 Hours) Vital Signs Temp Pulse Pulse Pulse Resp BP Pulse Ox 09/26/18 07:14 36.8 C 86 18 137/60 100 09/26/18 03:08 36.7 C 86 18 117/69 97 09/26/18 00:28 91 H 09/25/18 23:33 36.6 C 93 H 16 125/74 96 (1) Cirrhosis Ascites presence: without ascites Hepatic cirrhosis type: unspecified hepatic cirrhosis Qualified Code(s): K74.60 - Unspecified cirrhosis of liver
[2018-09-26 16:09] LABS: Hematocrit (blood only) 27.3 % (42-52); Hemoglobin 9.2 g/dL (14.0-18.0)
[2018-09-26] MEDS: cefTRIAXone SODIUM 2,000 MG in DEXTROSE 5% 50 ML IV SCH (17:40)
--- NOTE | 2018-09-26 21:34 | Hospitalist Progress Note ---
Date of Service September 26, 2018 Assessment & Plan (1) Acute blood loss anemia: 2nd to upper GI bleeding. Numerous potential sources for such including varices (but were not actively bleeding during EGD), gastritis, duodenitis, nodules, etc. H/H have leveled off as of today. Ongoing melena likely due to old blood. Repeat CBC am. Cont PPI drip. Appreciate GI assistance. Present on Admission?: Yes (2) GI bleed: see "acute blood loss anemia" above. s/p EGD yesterday by Dr Linares. Cont PPI drip. H/H have stabilized. Will need Fe supplementation. Present on Admission?: Yes (3) Cirrhosis: EGD showed varices, nodules, gastritis, and duodenal erythema. CT a/p on 09/25 showed liver morphology consistent with cirrhosis. Etiology uncertain - no prior h/o etoh usage. I do not have old imaging to compare with this admit's imaging. Work-up sent. Thus far ferritin wnl. HepB, C negative. Ceruloplasmin, autoimmune antibodies pending. Could a prior chemo agent for ALL have caused liver toxicity then damage?? CT abdomen/pelvis with non-occlusive thrombus identified within the splenic vein, the superior mesenteric vein, and the main portal vein. In light of significant thrombocytopenia and recent GI bleeding systemic anticoagulation deferred for now. Cirrhosis appears compensated at this time. Outpatient f/u with GI will be needed. Appreciate GI consultation and recs. Can stop rocephin. (4) ALL (acute lymphoid leukemia) in remission: Originally diagnosed in 2013, follows with Dr. Barr as an outpatient. s/p numerous chemo agents in the past. Pancytopenia appears chronic. Present on Admission?: No (5) HTN (hypertension): Hold diovan Nadalol 40mg started today -- BPs have dropped to 90s systolic following such. Cut dosage back to 20mg/day to see if this allows SBP to recover some. (6) HLD (hyperlipidemia): statin d/c in light of cirrhosis (7) History of shingles: Holding valacyclovir (8) Portal vein thrombosis: noted on CT abd/pelvis 2nd to cirrhosis deferring for now on systemic anticoagulation due to GI bleeding and low platelets (9) Pancytopenia: appears chronic. check B12, folate, TSH. cirrhosis can certainly lead to pancytopenia. (10) DVT prophylaxis: SCDs, ambulation only in light of GI bleeding sister updated by phone 09/26 Subjective patient has had copious stools - most of which have been melena but not as black/tarry. denies abd pain. no hematemesis. asks numerous questions about the cirrhosis. denies any prior h/o etoh use. when he was dx with his ALL he underwent "experimental" therapy at a hospital in [facility] Review of Systems Constitutional: no fever Respiratory: no dyspnea Cardiovascular: no chest pain Gastrointestinal: no nausea and no vomiting Physical Exam Constitutional: well developed and well nourished; no acute distress ENMT: external ear and nose normal, oropharynx normal Respiratory: normal respiratory effort, lungs clear to auscultation Cardiovascular: Rate/Rhythm: regular rate and regular rhythm Heart Sounds: normal S1 and normal S2; no murmur Vessels: posterior tibial pulses present and dorsalis pedis pulses present; no JVD Extremities: no edema Gastrointestinal (Abdomen): normal bowel sounds, soft, nontender, no hepatosplenomegaly Skin: no palmar erythema or capillary hemangiomas any location Neurologic: no focal motor deficits and not confused Psychiatric: A+Ox3, euthymic affect Results & Data Vital Signs (Past 12 Hours) Vital Signs Temp Pulse Pulse Pulse Resp BP Pulse Ox 09/26/18 19:37 36.9 C 56 L 18 94/56 L 97 09/26/18 15:07 36.8 C 53 L 20 93/49 L 98 09/26/18 12:05 36.9 C 86 18 98/62 L 96 09/26/18 10:21 74 Laboratory Results Laboratory Results - last 24 hr 09/26/18 09/26/18 09/26/18 05:23 05:23 15:55 WBC 4.08 L RBC 2.81 L Hgb 8.7 L 9.2 L Hct 25.7 L 27.3 L MCV 91.5 MCH 31.0 MCHC 33.9 RDW Std Deviation 53.3 H RDW Coeff of Tere 15.7 H Plt Count 48 L MPV 9.4 Sodium 141 Potassium 3.5 Chloride 112 H Carbon Dioxide 22 Anion Gap 7.0 BUN 28 H Creatinine 1.28 Est Cr Clr Drug Dosing 53.5 Est GFR ( Amer) 61.3 Est GFR (Non-Af Amer) 52.9 BUN/Creatinine Ratio 22.2 H Glucose 108 H Calcium 7.8 L Total Bilirubin 0.8 AST 13 L ALT 14 Alkaline Phosphatase 59 Total Protein 5.6 L Albumin 3.1 L Globulin 2.5 Albumin/Globulin Ratio 1.2 PG Care Time/CCT Total # of Minutes Spent Total Time Spent with Patient: Total time spent is greater than 50% in coordination of care (as documented) at patient's floor/unit and/or counseling patient: (1) GI bleed GI bleed type/associated pathology: unspecified gastrointestinal hemorrhage type Qualified Code(s): K92.2 - Gastrointestinal hemorrhage, unspecified (2) HLD (hyperlipidemia) Hyperlipidemia type: mixed hyperlipidemia Qualified Code(s): E78.2 - Mixed hyperlipidemia (3) Cirrhosis Ascites presence: without ascites Hepatic cirrhosis type: unspecified hepatic cirrhosis Qualified Code(s): K74.60 - Unspecified cirrhosis of liver (4) HTN (hypertension) Hypertension type: essential hypertension Qualified Code(s): I10 - Essential (primary) hypertension
[2018-09-27] MEDS: PANTOprazole 40 MG in DEXTROSE 5% 100 ML IV SCH ×3 (03:07→12:25)
[2018-09-27 05:45] LABS: Hematocrit (blood only) 25.1 % (42-52); Hemoglobin 8.3 g/dL (14.0-18.0); Mean Corpuscular Hgb Conc 33.1 g/dL (32-36); RDW Coefficient of Variation 15.6 % (11.5-14.5); RDW Standard Deviation 53.3 fL (36.4-46.3); Red Blood Count 2.67 M/uL (4.7-6.1); White Blood Count 4.13 K/uL (4.8-10.8)
[2018-09-27 05:52] LABS: Mean Platelet Volume 10.2 fL (7.4-10.4); Platelet Count 50 K/uL (130-400)
[2018-09-27 06:18] LABS: Albumin Level 2.9 gm/dl (3.4-5.0); BUN Creatinine Ratio 16.3 (10-20); Calcium 7.8 mg/dl (8.5-10.1); Creatinine Clr Calc Pharmacy 50.2 ml/min; Est GFR (African American) 57.5; Est GFR (Non-African American) 49.6; Potassium 3.4 mmol/L (3.5-5.1)
[2018-09-27 06:21] LABS: Albumin Globulin Ratio 1.1 (0.9-2); Bilirubin,Total 0.7 mg/dl (0.2-1); Globulin 2.6 gm/dl (2.5-4.0); Total Protein 5.5 gm/dl (6.4-8.2)
[2018-09-27 07:40] LABS: Folate (Folic Acid) 4.66 ng/ml (>5.38)
[2018-09-27] MEDS: CYANOCOBALAMIN 500 MCG TABLET (VITAMIN B-12) PO SCH (10:25)
[2018-09-27] MEDS: POTASSIUM CHLORIDE 20 MEQ TABCR PO SCH ×3 (10:25→21:33)
[2018-09-27] MEDS: FOLIC ACID 1 MG in SYRINGE 9.8 ML IV SCH (10:26)
[2018-09-27] MEDS: FERROUS SULFATE 325 MG TAB PO SCH ×2 (10:26→21:33)
[2018-09-27] MEDS: NADOLOL 40 MG TAB PO SCH (12:26)
[2018-09-27 15:55] LABS: Hematocrit (blood only) 25.5 % (42-52); Hemoglobin 8.6 g/dL (14.0-18.0)
[2018-09-27 16:05] LABS: Potassium 3.8 mmol/L (3.5-5.1)
[2018-09-27 16:08] LABS: Magnesium 2.2 mg/dl (1.8-2.4)
[2018-09-27 19:04] LABS: Alpha 1 Antitrypsin 156 MG/DL (83-199); Anti Nuclear Antibody Screen NEGATIVE (NEGATIVE); Anti-dsDNA Recombinant <1 IU/ML; Ceruloplasmin 27 MG/DL (18-36)
--- NOTE | 2018-09-27 19:57 | Hospitalist Progress Note ---
Date of Service September 27, 2018 Assessment & Plan (1) Acute blood loss anemia: 2nd to upper GI bleeding. Numerous potential sources for such including varices (but were not actively bleeding during EGD), gastritis, duodenitis, nodules, etc. H/H trend is up/down but overall trend is one of stability. Repeat H/H this afternoon acceptable. Will obtain CBC in am. Ongoing melena likely due to old blood. Spoke with GI - they will re-eval tomorrow. Ok to stop PPI drip. Transition to PO protonix BID starting TONIGHT. (2) GI bleed: see "acute blood loss anemia" above. s/p EGD by Dr Vijay culp findings as above. Start Fe supplementation. Protonix BID. appreciate GI assistance. (3) Cirrhosis: EGD showed varices, nodules, gastritis, and duodenal erythema. CT a/p on 09/25 showed liver morphology consistent with cirrhosis. Etiology uncertain - no prior h/o etoh usage. I do not have old imaging to compare with this admit's imaging. Work-up sent. Thus far ferritin wnl. HepB, C negative. Ceruloplasmin, autoimmune antibodies pending. Could a prior chemo agent for ALL have caused liver toxicity then damage?? CT abdomen/pelvis with non-occlusive thrombus identified within the splenic vein, the superior mesenteric vein, and the main portal vein. In light of significant thrombocytopenia and recent GI bleeding systemic anticoagulation deferred for now. Cirrhosis appears compensated at this time. Outpatient f/u with GI will be needed. Appreciate GI consultation and recs. No evidence of hepatic encephalopathy. 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 Barr as an outpatient. s/p numerous chemo agents in the past. Pancytopenia appears chronic. Went into remission 1 year ago. (5) HTN (hypertension): Holding diovan Did not tolerate nadalol with prompt hypotension from such - this has been held. BPs have recovered. GI aware. (6) HLD (hyperlipidemia): statin d/c in light of cirrhosis (7) History of shingles: Holding valacyclovir (8) Portal vein thrombosis: noted on CT abd/pelvis 2nd to cirrhosis deferring for now on systemic anticoagulation due to GI bleeding and low platelets (9) Pancytopenia: appears chronic. folate def can contribute. b12 level is low-normal. supplement b12/folate. cirrhosis can certainly lead to pancytopenia as well. CBC in am for stability. (10) Abnormal TSH: check FT4 in am (11) Folate deficiency: folic acid 1mg IV daily also supplement B12 --- 1000mcg daily (12) Diarrhea: check c diff toxin had colonic and distal small bowel inflammation on recent imaging cause?? d/w GI (13) DVT prophylaxis: SCDs, ambulation only in light of GI bleeding sister updated by phone 09/26 Subjective patient with ongoing copious, liquid, frequent diarrhea stools. had "12 since the morning." previously the stools were pure melena/tarry -- now lightening up; staff report the stools are green. tolerating clears. no abd pain. no dyspnea. tele stable. no new complaints. Review of Systems Constitutional: no fever Respiratory: no cough and no dyspnea Cardiovascular: no chest pain Physical Exam Constitutional: well developed and well nourished; no acute distress ENMT: external ear and nose normal, oropharynx normal Respiratory: normal respiratory effort, lungs clear to auscultation Cardiovascular: Rate/Rhythm: regular rate and regular rhythm Heart Sounds: normal S1 and normal S2; no murmur Vessels: posterior tibial pulses present and dorsalis pedis pulses present; no JVD Extremities: no edema Gastrointestinal (Abdomen): normal bowel sounds, soft, nontender, no hepatosplenomegaly Neurologic: no focal motor deficits and not confused Psychiatric: A+Ox3, euthymic affect Results & Data Vital Signs (Past 12 Hours) Vital Signs Temp Pulse Pulse Resp BP Pulse Ox 09/27/18 16:00 56 L 09/27/18 15:46 36.6 C 51 L 18 104/63 97 09/27/18 11:47 36.7 C 61 16 119/63 99 09/27/18 10:23 47 L 104/66 09/27/18 08:00 54 L Laboratory Results Laboratory Results - last 24 hr 09/25/18 09/27/18 09/27/18 16:53 05:15 05:15 WBC 4.13 L RBC 2.67 L Hgb 8.3 L Hct 25.1 L MCV 94.0 MCH 31.1 MCHC 33.1 RDW Std Deviation 53.3 H RDW Coeff of Tere 15.6 H Plt Count 50 L MPV 10.2 Sodium 142 Potassium 3.4 L Chloride 113 H Carbon Dioxide 23 Anion Gap 6.0 BUN 22 H Creatinine 1.35 Est Cr Clr Drug Dosing 50.2 Est GFR ( Amer) 57.5 Est GFR (Non-Af Amer) 49.6 BUN/Creatinine Ratio 16.3 Glucose 93 Calcium 7.8 L Magnesium Total Bilirubin 0.7 AST 13 L ALT 15 Alkaline Phosphatase 55 Total Protein 5.5 L Albumin 2.9 L Globulin 2.6 Albumin/Globulin Ratio 1.1 Eyfhu-3-Cikiywdsbyk 156 Ceruloplasmin 27 Vitamin B12 Folate TSH Stl C. diff Tox B Gene COLIN Screen NEGATIVE Double Strand DNA Ab <1 Anti-Mitochondrial Ab LESS THAN 1:20 Anti-Smooth Muscle Ab LESS THAN 1:20 09/27/18 09/27/18 09/27/18 06:36 06:36 15:47 WBC RBC Hgb 8.6 L Hct 25.5 L MCV MCH MCHC RDW Std Deviation RDW Coeff of Tere Plt Count MPV Sodium Potassium Chloride Carbon Dioxide Anion Gap BUN Creatinine Est Cr Clr Drug Dosing Est GFR ( Amer) Est GFR (Non-Af Amer) BUN/Creatinine Ratio Glucose Calcium Magnesium Total Bilirubin AST ALT Alkaline Phosphatase Total Protein Albumin Globulin Albumin/Globulin Ratio [id number]-4-Pzttitvvqiq Ceruloplasmin Vitamin B12 362 Folate 4.66 L TSH 4.680 H Stl C. diff Tox B Gene COLIN Screen Double Strand DNA Ab Anti-Mitochondrial Ab Anti-Smooth Muscle Ab 09/27/18 09/27/18 15:47 17:05 WBC RBC Hgb Hct MCV MCH MCHC RDW Std Deviation RDW Coeff of Tere Plt Count MPV Sodium Potassium 3.8 Chloride Carbon Dioxide Anion Gap BUN Creatinine Est Cr Clr Drug Dosing Est GFR ( Amer) Est GFR (Non-Af Amer) BUN/Creatinine Ratio Glucose Calcium Magnesium 2.2 Total Bilirubin AST ALT Alkaline Phosphatase Total Protein Albumin Globulin Albumin/Globulin Ratio [id number]-6-Kcuhgzmgwbl Ceruloplasmin Vitamin B12 Folate TSH Stl C. diff Tox B Gene Negative Cdiff Gene COLIN Screen Double Strand DNA Ab Anti-Mitochondrial Ab Anti-Smooth Muscle Ab PG Care Time/CCT Total # of Minutes Spent Total Time Spent with Patient: Total time spent is greater than 50% in coordination of care (as documented) at patient's floor/unit and/or counseling patient: (1) GI bleed GI bleed type/associated pathology: unspecified gastrointestinal hemorrhage type Qualified Code(s): K92.2 - Gastrointestinal hemorrhage, unspecified (2) HLD (hyperlipidemia) Hyperlipidemia type: mixed hyperlipidemia Qualified Code(s): E78.2 - Mixed hyperlipidemia (3) Cirrhosis Ascites presence: without ascites Hepatic cirrhosis type: unspecified hepatic cirrhosis Qualified Code(s): K74.60 - Unspecified cirrhosis of liver (4) HTN (hypertension) Hypertension type: essential hypertension Qualified Code(s): I10 - Essential (primary) hypertension (5) Diarrhea Diarrhea type: unspecified type Qualified Code(s): R19.7 - Diarrhea, unspecified
[2018-09-27] MEDS: PANTOprazole 40 MG TAB PO SCH (21:33)
[2018-09-28 07:57] LABS: Hematocrit (blood only) 24.2 % (42-52); Hemoglobin 8.3 g/dL (14.0-18.0); Mean Corpuscular Hgb Conc 34.3 g/dL (32-36); RDW Coefficient of Variation 15.8 % (11.5-14.5); Red Blood Count 2.63 M/uL (4.7-6.1); White Blood Count 2.67 K/uL (4.8-10.8)
[2018-09-28 08:00] LABS: Mean Platelet Volume 9.3 fL (7.4-10.4); Platelet Count 42 K/uL (130-400)
[2018-09-28] MEDS: PANTOprazole 40 MG TAB PO SCH ×2 (08:00→21:39)
[2018-09-28] MEDS: FOLIC ACID 1 MG in SYRINGE 9.8 ML IV SCH (08:00)
[2018-09-28] MEDS: POTASSIUM CHLORIDE 20 MEQ TABCR PO SCH ×3 (08:00→21:39)
[2018-09-28] MEDS: FERROUS SULFATE 325 MG TAB PO SCH ×2 (08:01→21:39)
[2018-09-28] MEDS: CYANOCOBALAMIN 500 MCG TABLET (VITAMIN B-12) PO SCH (08:01)
[2018-09-28 08:31] LABS: BUN Creatinine Ratio 12.2 (10-20); Calcium 8.1 mg/dl (8.5-10.1); Creatinine Clr Calc Pharmacy 48.8 ml/min; Est GFR (African American) 55.5; Est GFR (Non-African American) 47.9; Potassium 3.8 mmol/L (3.5-5.1)
[2018-09-28 08:36] LABS: T4 Free Thyroxine 1.18 ng/dl (0.8-1.6)
[2018-09-28] MEDS: NADOLOL 40 MG TAB PO SCH (09:55)
[2018-09-28] MEDS ORDERED: Nursing to Pharmacy Communication ONE (09:55)
--- NOTE | 2018-09-28 10:58 | Progress Note ---
DATE: 09/28/2018 GASTROENTEROLOGY PROGRESS NOTE RACE: . I had the pleasure of seeing Luis Gerer at bedside today. He continues to have approximately 10-12 bowel movements a day, which are nonbloody. His C. diff returned negative. He is tolerating p.o. intake. He states his last colonoscopy was greater than 10 years ago. He denies any hematemesis, melena or hematochezia. His H and H, however, continue to drop slightly and are down to 8.3 and 24.2 today. His platelet count is 42 and his white blood cell count is 2.67. CT scan from 09/25 did show cirrhotic liver with trace abdominal ascites and splenomegaly indicating portal hypertension. There was wall thickening and edema identified within the right colon as well as the distal small bowel and some mild wall thickening in the sigmoid colon. He denied any further complaints. REVIEW OF SYSTEMS: Negative x12 system review other than pertinent positives listed in the HPI. PHYSICAL EXAMINATION: VITAL SIGNS: Temperature 37.1, pulse 59, respirations 18, blood pressure 101/57, pulse ox 96% on room air. GENERAL: He is awake, cooperative, chronic ill appearing, in no acute distress. HEAD: Normocephalic, atraumatic. EYES: Pupils equal, round. Extraocular muscles are intact. ENT: External evaluation of ears and nose are normal. Oropharynx is clear. NECK: Soft, supple. CHEST: Decreased breath sounds in bilateral bases. CARDIOVASCULAR SYSTEM: Regular rate and rhythm. ABDOMEN: Soft, nontender, nondistended. Positive bowel sounds. There is no hepatosplenomegaly appreciable. EXTREMITIES: No clubbing, cyanosis, or edema. IMPRESSION: A 78-year-old male with cirrhosis and gastrointestinal bleed as well as diarrhea and abnormal CT imaging. PLAN: 1. In regards to the patient's diarrhea and abnormal CT imaging. I would recommend that he undergo a colonoscopy tomorrow. I will continue him on clear liquids today and make him n.p.o. after midnight to undergo this test to further evaluate for these symptoms. 2. In regards to his GI bleed, his H and H have continued to drop, though he has no overt signs of GI blood loss at this time. He did have esophageal nodule noted on recent upper endoscopy, which was bleeding at the time of endoscopy and pathology returned from biopsies of this, which showed moderate to focally severe chronic active esophagitis, though there was no evidence of metaplasia, dysplasia, or carcinoma. I would therefore continue him on twice daily PPI therapy. He did have esophageal varices noted though they were trace and grade 1. 3. Cirrhosis and esophageal varices. The patient did not tolerate a trial of Corgard therapy as he became hypotensive from this medication and it was discontinued by the hospitalist team. He will need outpatient followup for cirrhosis and screening for hepatocellular carcinoma as well as surveillance for his varices, which can be handled as an outpatient. I would recommend continuing supportive care. I will follow his clinical course and make further recommendations. Once again, thanks for allowing me to participate in the care of this patient. If you have any further questions, please do not hesitate in contacting me.
[2018-09-28] MEDS: D5W AND 1/2NSS + 20MEQ KCL 20 MEQ/1,000 ML BAG IV SCH (19:05)
[2018-09-28] MEDS: LAVAGE SOLUTION 4000ML PO SCH (21:39)
--- NOTE | 2018-09-29 05:48 | Hospitalist Progress Note ---
Date of Service September 28, 2018 Assessment & Plan (1) Acute blood loss anemia: 2nd to upper GI bleeding. Numerous potential sources for such including varices (but were not actively bleeding during EGD), gastritis, duodenitis, nodules, etc. H/H trend has been one of stability (Hb values running 8 to 8.5 or so last 3 days). Melena stools have resolved. CBC in am for stability. Cont PPI twice daily. (2) GI bleed: see "acute blood loss anemia" above. s/p EGD by Dr Vijay culp findings as above. Cont Fe supplementation. Protonix BID. Biopsies from EGD w/o cancer. (3) Cirrhosis: EGD showed varices, nodules, gastritis, and duodenal erythema. CT a/p on 09/25 showed liver morphology consistent with cirrhosis. Etiology uncertain - no prior h/o etoh usage. I do not have old imaging to compare with this admit's imaging. Work-up sent. Thus far ferritin wnl. HepB, C negative. Ceruloplasmin, autoimmune antibodies negative/normal. Could a prior chemo agent for ALL have caused liver toxicity then damage?? CT abdomen/pelvis with non-occlusive thrombus identified within the splenic vein, the superior mesenteric vein, and the main portal vein. In light of significant thrombocytopenia and recent GI bleeding systemic anticoagulation deferred for now. Cirrhosis appears compensated at this time. Outpatient f/u with GI will be needed. Appreciate GI consultation and recs. No evidence of hepatic encephalopathy. 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 Barr as an outpatient. s/p numerous chemo agents in the past. Pancytopenia appears chronic. Went into remission 1 year ago. (5) HTN (hypertension): Holding diovan Did not tolerate nadalol with prompt hypotension from such - this has been held. BPs have recovered. (6) HLD (hyperlipidemia): statin d/c in light of cirrhosis (7) History of shingles: Holding valacyclovir (8) Portal vein thrombosis: noted on CT abd/pelvis 2nd to cirrhosis deferring for now on systemic anticoagulation due to GI bleeding and low platelets (9) Pancytopenia: appears chronic. folate def can contribute. b12 level is low-normal. supplement b12/folate. cirrhosis can certainly lead to pancytopenia as well. CBC in am for stability. (10) Abnormal TSH: FT4 wnl - no replacement at this time. (11) Folate deficiency: folic acid 1mg IV daily also supplement B12 --- 1000mcg daily (12) Diarrhea: c diff toxin negative. stools improving. [id number], in light of colonic and distal small bowel inflammation on recent imaging, to have colonoscopy tomorrow w/ Dr Linares. cause?? prep tonight and c-scope tomorrow. start IV fluids later tonight in light of prep and limited PO intake. (13) DVT prophylaxis: SCDs, ambulation only in light of GI bleeding sister updated by phone 09/26 home after colonoscopy?? Subjective pt feeling well today. denies any complaints. stool frequency has lessened considerably overnight. stools no longer melanotic in appearance. to have colonoscopy tomorrow by Dr Linares. tele stable. denies abd pain. hoping to get home soon. ambulating. Review of Systems Constitutional: no fever Respiratory: no dyspnea Cardiovascular: no chest pain Gastrointestinal: no abdominal pain, no bloating, no nausea and no vomiting Physical Exam Constitutional: well developed and well nourished; no acute distress ENMT: external ear and nose normal, oropharynx normal Respiratory: normal respiratory effort, lungs clear to auscultation Cardiovascular: Rate/Rhythm: regular rate and regular rhythm Heart Sounds: normal S1 and normal S2; no murmur Vessels: posterior tibial pulses present and dorsalis pedis pulses present; no JVD Extremities: no edema Gastrointestinal (Abdomen): normal bowel sounds, soft, nontender, no hepatosplenomegaly Skin: + pallor Psychiatric: A+Ox3, euthymic affect Results & Data Vital Signs (Past 12 Hours) Vital Signs Temp Pulse Pulse Pulse Resp BP BP 09/28/18 19:55 37.1 C 61 17 119/69 Pulse Ox 09/28/18 19:55 94 Laboratory Results Laboratory Results - last 24 hr 09/28/18 09/28/18 07:45 07:45 WBC 2.67 L RBC 2.63 L Hgb 8.3 L Hct 24.2 L MCV 92.0 MCH 31.6 MCHC 34.3 RDW Std Deviation 52.0 H RDW Coeff of Tere 15.8 H Plt Count 42 L MPV 9.3 Sodium 143 Potassium 3.8 Chloride 115 H Carbon Dioxide 22 Anion Gap 6.0 BUN 17 Creatinine 1.39 Est Cr Clr Drug Dosing 48.8 Est GFR ( Amer) 55.5 Est GFR (Non-Af Amer) 47.9 BUN/Creatinine Ratio 12.2 Glucose 91 Calcium 8.1 L Free T4 1.18 PG Care Time/CCT Total # of Minutes Spent Total Time Spent with Patient: Total time spent is greater than 50% in coordination of care (as documented) at patient's floor/unit and/or counseling patient: (1) GI bleed GI bleed type/associated pathology: unspecified gastrointestinal hemorrhage type Qualified Code(s): K92.2 - Gastrointestinal hemorrhage, unspecified (2) Cirrhosis Hepatic cirrhosis type: unspecified hepatic cirrhosis Ascites presence: w ithout ascites Qualified Code(s): K74.60 - Unspecified cirrhosis of liver (3) HTN (hypertension) Hypertension type: essential hypertension Qualified Code(s): I10 - Essential (primary) hypertension (4) HLD (hyperlipidemia) Hyperlipidemia type: mixed hyperlipidemia Qualified Code(s): E78.2 - Mixed hyperlipidemia (5) Diarrhea Diarrhea type: unspecified type Qualified Code(s): R19.7 - Diarrhea, unspecified
[2018-09-29] MEDS: LAVAGE SOLUTION 4000ML PO SCH (06:04)
[2018-09-29 07:26] LABS: Hematocrit (blood only) 28.4 % (42-52); Hemoglobin 9.6 g/dL (14.0-18.0); Mean Corpuscular Hgb Conc 33.8 g/dL (32-36); Mean Corpuscular Volume 92.2 fL (80-100); RDW Coefficient of Variation 16.3 % (11.5-14.5); RDW Standard Deviation 53.3 fL (36.4-46.3); Red Blood Count 3.08 M/uL (4.7-6.1); White Blood Count 4.31 K/uL (4.8-10.8)
[2018-09-29 07:43] LABS: Mean Platelet Volume 9.8 fL (7.4-10.4); Platelet Count 60 K/uL (130-400)
[2018-09-29 08:00] LABS: BUN Creatinine Ratio 9.3 (10-20); Calcium 8.5 mg/dl (8.5-10.1); Creatinine Clr Calc Pharmacy 47.1 ml/min; Est GFR (African American) 53.2; Est GFR (Non-African American) 45.9; Potassium 4.2 mmol/L (3.5-5.1)
[2018-09-29] MEDS: D5W AND 1/2NSS + 20MEQ KCL 20 MEQ/1,000 ML BAG IV SCH (08:03)
[2018-09-29] MEDS: PANTOprazole 40 MG TAB PO SCH ×2 (08:04→20:30)
[2018-09-29] MEDS: POTASSIUM CHLORIDE 20 MEQ TABCR PO SCH ×3 (08:04→20:31)
[2018-09-29] MEDS: CYANOCOBALAMIN 500 MCG TABLET (VITAMIN B-12) PO SCH (08:04)
[2018-09-29] MEDS: FERROUS SULFATE 325 MG TAB PO SCH ×2 (08:04→20:30)
[2018-09-29] MEDS: FOLIC ACID 1 MG in SYRINGE 9.8 ML IV SCH (08:05)
--- NOTE | 2018-09-29 09:02 | History & Physical Bridge Note ---
Date of Service September 29, 2018 History & Physical Bridge Note I have examined the patient, reviewed the History & Physical and in the interval since the performance of the History & Physical I have noted the following changes of clinical significance: H&H is up to 9.6/28.4 today. He denies any chest pain, palpitations, abdominal pain or vomiting. Tolerated and completed bowel prep solution and reports passing clear, yellow liquid stools in anticipation for colonoscopy today. PE: A&O x3. vital signs reviewed. RRR. Lungs CTA. Abdomen soft, non-tender. Hyperactive bowel sounds. A/P: Patient with cirrhosis admitted with acute blood loss anemia and diarrhea. Proceed with colonoscopy by Dr. Linares today. Additional recommendations pending results of testing. Supervising Physician Co-Signing Physician Notes Agree with SHYANNE Chan as above Abd: Soft, NT, ND, +BS Continue current therapy Proceed with colonoscopy today
--- NOTE | 2018-09-29 10:16 | Anesthesiology Consultation ---
Date of Service September 29, 2018 Assessment & Plan (1) Encounter for pre-operative examination: (2) Encounter for pre-operative examination: (3) Encounter for pre-operative examination: History Surgery Operation Date: 09/25/18 09:00 Proposed Procedures p Esophagogastroduodenoscopy Nii Black Case, DO Operation Date: 09/29/18 10:15 Proposed Procedures p Colonoscopy Dr. Vijay Black Case, DO Height/Weight Height: 5 ft 10 in Weight: 90.7 kg Allergies Allergy/AdvReac Type Severity Reaction Status Date / Time No Known Allergies Allergy Unverified 09/24/18 10:41 Medications Home Medications Medication Instructions Recorded Confirmed Last Taken pravastatin 10 mg PO DAILY 03/31/18 03/31/18 Unknown valacyclovir [Valtrex] 500 mg PO DAILY 03/31/18 03/31/18 Unknown valsartan [Diovan] 80 mg PO DAILY 03/31/18 03/31/18 Unknown acetaminophen 325 mg PO Q6H PRN 09/28/18 09/28/18 Unknown cyclophosphamide 100 mg IV DAILY 09/28/18 09/28/18 Unknown cytarabine 09/28/18 Unknown cytarabine 09/28/18 Unknown dexamethasone 09/28/18 Unknown diphenhydramine HCl 25 mg PO Q6H PRN 09/28/18 09/28/18 Unknown inotuzumab ozogamicin 09/28/18 Unknown leucovorin calcium 09/28/18 Unknown mercaptopurine 09/28/18 Unknown mesna 09/28/18 Unknown methotrexate mg 09/28/18 Unknown pegfilgrastim mg SUBCUT 09/28/18 Unknown prednisone 1 mg PO DAILY 09/28/18 09/28/18 Unknown rituximab mg IV 09/28/18 Unknown vincristine 2 mg IV Q7D 09/28/18 09/28/18 Unknown Active Medications Generic Name Dose Route Start Last Admin Trade Name Freq PRN Reason Stop Dose Admin Cyanocobalamin 1,000 mcg 09/27/18 09:45 09/29/18 08:04 Vitamin B-12 PO 10/27/18 09:44 1,000 mcg QAM EMMA Administration Ferrous Sulfate 325 mg 09/27/18 09:45 09/29/18 08:04 Feosol PO 10/27/18 09:44 325 mg BID EMMA Administration Folic Acid 1 mg/ Syringe 10 mls @ 5 mls/min 09/27/18 09:45 09/29/18 08:05 IV 10/27/18 09:44 5 mls/min QAM EMMA Administration Potassium Chloride/Dextrose/Sod Cl 20 meq in 1,000 mls @ 75 mls/hr 09/28/18 18:00 09/29/18 08:03 D5w And 1/2nss + 20meq Kcl IV 10/28/18 17:59 75 mls/hr .[id number] EMMA Administration Pantoprazole Sodium 40 mg 09/27/18 21:00 09/29/18 08:04 Protonix PO 10/27/18 20:59 40 mg BID EMMA Administration Potassium Chloride 20 meq 09/27/18 09:45 09/29/18 08:04 Klor-Con M20 PO 10/27/18 09:44 20 meq TID EMMA Administration NPO Date Last Intake of Fluids: 09/24/18 Time Last Intake of Fluids: 23:30 Date Last Intake of Solids: 09/24/18 Time Last Intake of Solids: 23:30 Past Medical History Medical History History of shingles HLD (hyperlipidemia) HTN (hypertension) ALL (acute lymphoid leukemia) in remission (Resolved) GI bleed (Acute) Recurrent inguinal hernia Cirrhosis Myocardial infarct 2001, two stents 2001 , 2002 Pancytopenia Portal vein thrombosis History of inguinal hernia (Resolved) Past Family History Family History Other Family history non-contributory Past Surgical History Surgical History History of esophagogastroduodenoscopy (EGD) last one 09/27/18 Hx of inguinal hernia repair (Resolved) Social History Smoking Status: Former smoker Smoking End Date: ~1999 Hx Alcohol Use: Yes Alcohol type: beer and hard liquor Alcohol Intake Frequency Comment: ~ 1 drink/week Hx Substance Use: No Physical Exam Vital Signs Last Vital Signs Temp 36.6 C 09/29/18 11:03 Pulse 62 09/29/18 11:03 Resp 18 09/29/18 11:03 BP 120/63 09/29/18 11:03 Pulse Ox 96 09/29/18 11:03 Testing Laboratory Results 09/29/18 07:16 09/29/18 07:16 PT 11.5 Seconds (9.0-12.0) 09/25/18 05:39 INR 1.1 (0.9-1.1) 09/25/18 05:39 APTT 23.6 Seconds (21.0-31.0) 09/24/18 10:05 Blood Type O Positive 09/24/18 10:21 Antibody Screen NEGATIVE 09/24/18 10:21 Electrocardiogram Date: 09/24/18 Sinus tachycardia, rate 122 bpm Low voltage QRS Inferior infarct , age undetermined Possible Anterolateral infarct , age undetermined Abnormal ECG No previous ECGs available Chest X-Ray Date: 09/24/18 Findings: + NAD
[2018-09-29] MEDS ORDERED: MIDAZOLAM HCL 1 MG/ML 2ML VIAL ONE (11:10)
[2018-09-29] MEDS ORDERED: LIDOCAINE HCL 2% 2 ML VIAL/AMP(20MG/ML) INFIL ONE (11:11)
[2018-09-29] MEDS ORDERED: ONDANSETRON INJ 2 MG/ML 2 ML VIAL ONE (11:11)
[2018-09-29] MEDS ORDERED: PROPOFOL IV EMULSION 10 MG/ML 20 ML VIAL IV ONE (11:11)
--- NOTE | 2018-09-29 12:29 | GI REPORT ---
Patient Name: Luis Greer Procedure Date: 09/29/2018 11:16 AM Date of : 1940 Admit Type: Inpatient Age: 78 Gender: Male Attending MD: Vadim Linares DO Procedure: Colonoscopy Providers: Vadim Linares DO Referring MD: Danielito Osborne Indications: Chronic diarrhea Medicines: Monitored Anesthesia Care Complications: No immediate complications. Estimated Blood Loss: Estimated blood loss: none. Procedure: Pre-Anesthesia Assessment: - Prior to the procedure, a History and Physical was performed, and patient medications and allergies were reviewed. The patient's tolerance of previous anesthesia was also reviewed. The risks and benefits of the procedure and the sedation options and risks were discussed with the patient. All questions were answered, and informed consent was obtained. Prior Anticoagulants: The patient has taken no previous anticoagulant or antiplatelet agents. ASA Grade Assessment: IV - A patient with severe systemic disease that is a constant threat to life. After reviewing the risks and benefits, the patient was deemed in satisfactory condition to undergo the procedure. After I obtained informed consent, the scope was passed under direct vision. Throughout the procedure, the patient's blood pressure, pulse, and oxygen saturations were monitored continuously. The scope was introduced through the anus and advanced to the terminal ileum. The colonoscopy was performed without difficulty. The patient tolerated the procedure well. The quality of the bowel preparation was good. The terminal ileum, ileocecal valve, appendiceal orifice, and rectum were photographed. Findings: The perianal and digital rectal examinations were normal. Six sessile polyps were found in the rectum, transverse colon, ascending colon and cecum. The polyps were 5 to 10 mm in size. These polyps were removed with a hot snare. Resection and retrieval were complete. Several random biopsies were obtained with cold forceps for histology in the entire colon. Scattered small-mouthed diverticula were found in the entire colon. Internal hemorrhoids were found during retroflexion. The hemorrhoids were small. Impression: - Six 5 to 10 mm polyps in the rectum, in the transverse colon, in the ascending colon and in the cecum, removed with a hot snare. Resected and retrieved. - Diverticulosis in the entire examined colon. - Internal hemorrhoids. - Several random biopsies were obtained in the entire colon. Recommendation: - Return patient to [facility] for ongoing care. - Advance diet as tolerated. - Continue present medications. - Repeat colonoscopy for surveillance based on pathology results. Vadim KianaAnay Linares, DO 09/29/2018 12:29:05 PM This report has been signed electronically. Note Initiated On: 09/29/2018 11:16 AM Number of Addenda: 0 I attest to the content of the Intraoperative Record and orders documented therein, exceptions below {[id number]}
--- NOTE | 2018-09-29 21:07 | Hospitalist Progress Note ---
Date of Service September 29, 2018 Assessment & Plan (1) Acute blood loss anemia: 2nd to upper GI bleeding. Numerous potential sources for such including varices (but were not actively bleeding during EGD), gastritis, duodenitis, nodules, etc. H/H stable last 3 days. Melena stools have resolved. CBC in am for stability. Cont PPI twice daily. (2) GI bleed: see "acute blood loss anemia" above. s/p EGD by Dr Vijay culp findings as above. Cont Fe supplementation. Protonix BID. Biopsies from EGD w/o cancer. Colonoscopy without colitis or source of bleeding. (3) Cirrhosis: EGD showed varices, nodules, gastritis, and duodenal erythema. CT a/p on 09/25 showed liver morphology consistent with cirrhosis. Etiology uncertain - no prior h/o etoh usage. I do not have old imaging to compare with this admit's imaging. Work-up sent. Thus far ferritin wnl. HepB, C negative. Ceruloplasmin, autoimmune antibodies negative/normal. Could a prior chemo agent for ALL have caused liver toxicity then damage?? I faxed a list of chemo meds pt took 2-3 years ago to our pharmacy to see if any agent could have caused liver toxicity. CT abdomen/pelvis with non-occlusive thrombus identified within the splenic vein, the superior mesenteric vein, and the main portal vein. In light of significant thrombocytopenia and recent GI bleeding systemic anticoagulation deferred for now. Cirrhosis appears compensated at this time. Outpatient f/u with GI will be needed. Appreciate GI consultation and recs. No evidence of hepatic encephalopathy. 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 Barr as an outpatient. s/p numerous chemo agents in the past. Pancytopenia appears chronic. Went into remission 1 year ago. (5) HTN (hypertension): Holding diovan Did not tolerate nadalol with prompt hypotension from such - this has been held. BPs have recovered. (6) HLD (hyperlipidemia): statin d/c in light of cirrhosis (7) History of shingles: Holding valacyclovir (8) Portal vein thrombosis: noted on CT abd/pelvis 2nd to cirrhosis deferring for now on systemic anticoagulation due to GI bleeding and low platelets (9) Pancytopenia: appears chronic. folate def can contribute. b12 level is low-normal. supplement b12/folate. cirrhosis can certainly lead to pancytopenia as well. CBC in am for stability once again. will need to see his oncologist as well post-d/c to follow his counts. (10) Abnormal TSH: FT4 wnl - no replacement at this time. (11) Folate deficiency: folic acid 1mg IV daily convert to PO at d/c x 1 month also supplement B12 --- 1000mcg daily (12) Diarrhea: c diff toxin negative. stools improving/ diarrhea resolved. no colitis on c-scope today. multiple polyps and small amount of diverticulosis only (13) DVT prophylaxis: SCDs, ambulation only in light of GI bleeding hopefully d/c home tomorrow Subjective feels good post-colonoscopy today eating well had regular food for first time in days -- "tasted great!" denies ANY nausea, emesis, abd pain, diarrhea, melena/BRBPR tele normal overnight Review of Systems Constitutional: no fever Respiratory: no cough Cardiovascular: no chest pain Gastrointestinal: as per Subjective / HPI Physical Exam Constitutional: well developed and well nourished; no acute distress ENMT: external ear and nose normal, oropharynx normal Respiratory: normal respiratory effort, lungs clear to auscultation Cardiovascular: Rate/Rhythm: regular rate and regular rhythm Heart Sounds: normal S1 and normal S2; no murmur Vessels: posterior tibial pulses present and dorsalis pedis pulses present; no JVD Extremities: no edema Gastrointestinal (Abdomen): normal bowel sounds, soft, nontender, no hepatosplenomegaly Skin: + pallor Psychiatric: A+Ox3, euthymic affect Results & Data Vital Signs (Past 12 Hours) Vital Signs Temp Pulse Pulse Pulse Resp BP BP 09/29/18 19:40 37.2 C 60 19 96/59 L 09/29/18 16:06 36.3 C L 67 23 105/66 09/29/18 15:00 36.6 C 59 L 59 L 16 125/72 09/29/18 14:30 36.6 C 68 16 132/67 09/29/18 14:00 36.6 C 64 16 125/69 09/29/18 13:45 36.5 C 61 16 127/67 09/29/18 13:30 36.5 C 62 16 133/67 09/29/18 13:15 36.5 C 53 L 16 123/74 09/29/18 12:44 58 L 18 109/57 L 09/29/18 12:29 57 L 18 106/50 L 09/29/18 12:14 36.6 C 63 16 97/46 L 09/29/18 11:48 36.5 C 76 18 118/62 09/29/18 11:03 36.6 C 62 18 120/63 Pulse Ox 09/29/18 19:40 97 09/29/18 16:06 95 09/29/18 15:00 96 09/29/18 14:30 96 09/29/18 14:00 96 09/29/18 13:45 96 09/29/18 13:30 96 09/29/18 13:15 96 09/29/18 12:44 97 09/29/18 12:29 100 09/29/18 12:14 96 09/29/18 11:48 09/29/18 11:03 96 Laboratory Results Laboratory Results - last 24 hr 09/29/18 09/29/18 07:16 07:16 WBC 4.31 L RBC 3.08 L Hgb 9.6 L Hct 28.4 L MCV 92.2 MCH 31.2 MCHC 33.8 RDW Std Deviation 53.3 H RDW Coeff of Tere 16.3 H Plt Count 60 L MPV 9.8 Sodium 144 Potassium 4.2 Chloride 113 H Carbon Dioxide 26 Anion Gap 5.0 BUN 13 Creatinine 1.44 H Est Cr Clr Drug Dosing 47.1 Est GFR ( Amer) 53.2 Est GFR (Non-Af Amer) 45.9 BUN/Creatinine Ratio 9.3 L Glucose 114 H Calcium 8.5 PG Care Time/CCT Total # of Minutes Spent Total Time Spent with Patient: Total time spent is greater than 50% in coordination of care (as documented) at patient's floor/unit and/or counseling patient: (1) GI bleed GI bleed type/associated pathology: unspecified gastrointestinal hemorrhage type Qualified Code(s): K92.2 - Gastrointestinal hemorrhage, unspecified (2) Diarrhea Diarrhea type: unspecified type Qualified Code(s): R19.7 - Diarrhea, unspecified (3) HLD (hyperlipidemia) Hyperlipidemia type: mixed hyperlipidemia Qualified Code(s): E78.2 - Mixed hyperlipidemia (4) Cirrhosis Ascites presence: without ascites Hepatic cirrhosis type: unspecified hepatic cirrhosis Qualified Code(s): K74.60 - Unspecified cirrhosis of liver (5) HTN (hypertension) Hypertension type: essential hypertension Qualified Code(s): I10 - Essential (primary) hypertension
[2018-09-30 07:30] LABS: Hematocrit (blood only) 23.6 % (42-52); Hemoglobin 7.9 g/dL (14.0-18.0); Mean Corpuscular Hgb Conc 33.5 g/dL (32-36); Mean Corpuscular Volume 93.7 fL (80-100); Nucleated RBC % (auto) 3.7 %; Platelet Count 55 K/uL (130-400); RDW Coefficient of Variation 16.4 % (11.5-14.5); RDW Standard Deviation 54.1 fL (36.4-46.3); Red Blood Count 2.52 M/uL (4.7-6.1); White Blood Count 2.77 K/uL (4.8-10.8)
[2018-09-30 07:42] LABS: Albumin Level 2.8 gm/dl (3.4-5.0); BUN Creatinine Ratio 8.4 (10-20); Calcium 7.8 mg/dl (8.5-10.1); Creatinine Clr Calc Pharmacy 53.7 ml/min; Est GFR (African American) 61.9; Est GFR (Non-African American) 53.4; Potassium 4.2 mmol/L (3.5-5.1)
[2018-09-30 07:44] LABS: Albumin Globulin Ratio 1.1 (0.9-2); Bilirubin,Total 0.5 mg/dl (0.2-1); Globulin 2.5 gm/dl (2.5-4.0); Total Protein 5.3 gm/dl (6.4-8.2)
--- NOTE | 2018-09-30 08:13 | Anesthesiology Progress Note ---
Date of Service September 30, 2018 Anesthesia Post Procedure Vital Signs Vital Signs: Temp Pulse Pulse Pulse Resp BP BP 09/30/18 07:11 36.5 C 64 20 92/54 L 09/30/18 04:30 37.1 C 66 22 102/55 L 09/29/18 23:49 37.0 C 71 18 105/60 09/29/18 19:40 37.2 C 60 19 96/59 L 09/29/18 16:06 36.3 C L 67 23 105/66 09/29/18 15:00 36.6 C 59 L 59 L 16 125/72 09/29/18 14:30 36.6 C 68 16 132/67 09/29/18 14:00 36.6 C 64 16 125/69 09/29/18 13:45 36.5 C 61 16 127/67 09/29/18 13:30 36.5 C 62 16 133/67 09/29/18 13:15 36.5 C 53 L 16 123/74 09/29/18 12:44 58 L 18 109/57 L 09/29/18 12:29 57 L 18 106/50 L 09/29/18 12:14 36.6 C 63 16 97/46 L 09/29/18 11:48 36.5 C 76 18 118/62 09/29/18 11:03 36.6 C 62 18 120/63 Pulse Ox 09/30/18 07:11 95 09/30/18 04:30 92 09/29/18 23:49 95 09/29/18 19:40 97 09/29/18 16:06 95 09/29/18 15:00 96 09/29/18 14:30 96 09/29/18 14:00 96 09/29/18 13:45 96 09/29/18 13:30 96 09/29/18 13:15 96 09/29/18 12:44 97 09/29/18 12:29 100 09/29/18 12:14 96 09/29/18 11:48 09/29/18 11:03 96 Notes Mental Status: alert / awake / arousable and participated in evaluation Patient Amnestic to Procedure: Yes Nausea / Vomiting: adequately controlled Pain: adequately controlled Airway Patency, RR, SpO2: stable & adequate BP & HR: stable & adequate Hydration State: stable & adequate Anesthetic Complications: no major complications apparent and Pt Satisfied with anesthetic care
[2018-09-30] MEDS: PANTOprazole 40 MG TAB PO SCH (08:19)
[2018-09-30] MEDS: FOLIC ACID 1 MG in SYRINGE 9.8 ML IV SCH (08:19)
[2018-09-30] MEDS: CYANOCOBALAMIN 500 MCG TABLET (VITAMIN B-12) PO SCH (08:19)
[2018-09-30] MEDS: POTASSIUM CHLORIDE 20 MEQ TABCR PO SCH (08:19)
[2018-09-30] MEDS: FERROUS SULFATE 325 MG TAB PO SCH (08:20)
--- NOTE | 2018-09-30 10:14 | Gastroenterology Progress Note ---
Date of Service September 30, 2018 Assessment & Plan (1) Cirrhosis: (2) GI bleed: 1. Continue Protonix 40 mg BID. 2. Avoid hepatotoxins such as alcohol. 3. Follow up in our office as an outpatient for ongoing chronic medical management of liver disease. Supervising Physician Co-Signing Physician Notes Agree with SHYANNE Chan as above Abd: Soft, NT, ND, +BS Continue current therapy Will followup in our office for further management of GI medical issues Subjective Patient reports feeling well this morning and states he is hoping for discharge today. Despite the drop in H&H overnight, he denies any overt GIB symptoms. Denies any nausea or vomiting or abdominal pain. Colonoscopy yesterday without any overt bleeding source. Continues Protonix 40 mg BID. Review of Systems Respiratory: no problem reported Cardiovascular: no problem reported Gastrointestinal: as per Subjective / HPI Physical Exam Constitutional: WD/WN, vitals as above Eyes: EOM intact bilaterally Gastrointestinal (Abdomen): Percussion/Palpation: abdomen soft; abdomen nontender Psychiatric: A+Ox3, euthymic affect Results & Data Vital Signs (Past 12 Hours) Vital Signs Temp Pulse Resp BP BP Pulse Ox 09/30/18 07:11 36.5 C 64 20 92/54 L 95 09/30/18 04:30 37.1 C 66 22 102/55 L 92 09/29/18 23:49 37.0 C 71 18 105/60 95 Laboratory Results Abnormal lab results 09/30/18 09/30/18 Range/Units 06:38 06:38 WBC 2.77 L (4.8-10.8) K/uL RBC 2.52 L (4.7-6.1) M/uL Hgb 7.9 L (14.0-18.0) g/dL Hct 23.6 L (42-52) % RDW Std Deviation 54.1 H (36.4-46.3) fL RDW Coeff of Tere 16.4 H (11.5-14.5) % Plt Count 55 L (130-400) K/uL MPV 11.0 H (7.4-10.4) fL Absolute Nucleated RBC 0.10 H (0-0) K/uL Chloride 114 H (98-107) mmol/L BUN/Creatinine Ratio 8.4 L (10-20) Calcium 7.8 L (8.5-10.1) mg/dl AST 13 L (15-37) U/L Total Protein 5.3 L (6.4-8.2) gm/dl Albumin 2.8 L (3.4-5.0) gm/dl PG Care Time/CCT Total # of Minutes Spent Total Time Spent with Patient: Total time spent is greater than 50% in coordination of care (as documented) at patient's floor/unit and/or counseling patient: (1) GI bleed GI bleed type/associated pathology: unspecified gastrointestinal hemorrhage type Qualified Code(s): K92.2 - Gastrointestinal hemorrhage, unspecified (2) Cirrhosis Ascites presence: without ascites Hepatic cirrhosis type: unspecified hepatic cirrhosis Qualified Code(s): K74.60 - Unspecified cirrhosis of liver
[2018-09-30 11:15] LABS: Hematocrit (blood only) 25.8 % (42-52); Hemoglobin 8.8 g/dL (14.0-18.0)
--- NOTE | 2018-10-05 06:44 | Discharge Summary ---
Date of Service date of admission - 09/24/18 date of discharge - 09/30/18 Admission HPI Per Admitting Provider Mr. Greer is a pleasant 78 yo male who was in his normal state of health on Wednesday. Early Wednesday morning, he woke up with nausea, and subsequently had 2 episodes of bright red and coffee ground emesis. He states that approximately 1 hour later he developed dark tarry stools, and has been having them every 30-40 minutes since that time. He presented to the ER for further evaluation, and was noted to have a Hgb of 11. He was subsequently admitted and placed on a Protonix gtt. His H/H continued to fall, and he continued to have dark tarry stools. He does admit to taking Naproxen as needed for headaches, but states that it is minimal approximately 2-3 times per week. He denies lightheadedness, dizziness, syncope, abdominal pain, nausea, further vomiting, diarrhea, or family history of GI malignancies. He states that he has minimal home symptoms of GERD, that is controlled with OTC antacids 1-2 times per month. He denies any further complaints. Principal Diagnosis acute blood loss anemia 2nd to upper GI bleeding in setting of new-onset cirrhosis Discharge Exam Constitutional well developed and well nourished; no acute distress ENMT external ear and nose normal, oropharynx normal Respiratory normal respiratory effort, lungs clear to auscultation Cardiovascular Rate/Rhythm: regular rate and regular rhythm Heart Sounds: normal S1 and normal S2; no murmur Vessels: posterior tibial pulses present and dorsalis pedis pulses present; no JVD Extremities: no edema Gastrointestinal (Abdomen) normal bowel sounds, soft, nontender, no hepatosplenomegaly Skin + pallor no stigmata of chronic liver disease Neurologic no focal motor deficits and not confused Psychiatric A+Ox3, euthymic affect Discharge Data Allergies Allergy/AdvReac Type Severity Reaction Status Date / Time No Known Drug Allergies Allergy Verified 10/06/18 12:58 Consultations gastroenterology - Vadim Linares DO Procedures Performed Operation Date: 09/25/18 09:00 Esophagogastroduodenoscopy - Vadim Linares, DO - Grade I esophageal varices. - A single mucosal papule (nodule) found in the stomach. Biopsied. Injected. Treated with a heater probe. - Medium-sized hiatal hernia. - Gastritis. - Erythematous duodenopathy. - Mucosal nodule found in the duodenum. Operation Date: 09/29/18 10:15 Colonoscopy with Polypectomy - Vadim Black Case, DO - Six 5 to 10 mm polyps in the rectum, in the transverse colon, in the ascending colon and in the cecum, removed with a hot snare. Resected and retrieved. - Diverticulosis in the entire examined colon. - Internal hemorrhoids. - Several random biopsies were obtained in the entire colon. Ordered Studies CT abd pelvis - IMPRESSION: 1. The liver is cirrhotic in morphology and heterogeneous in attenuation. 2. Trace abdominal ascites and splenomegaly indicate portal hypertension. 3. There is nonocclusive thrombus identified within the splenic vein, the superior mesenteric vein, and the main portal vein as above. 4. There is significant wall thickening and edema identified involving the right colon, as well as the distal small bowel. Milder wall thickening is seen within the sigmoid colon. Although this could be related to cirrhosis and portal colopathy, the appearance is more suggestive of a nonspecific enterocolitis and clinical correlation will be required. 5. Bilateral nephrolithiasis. 6. Prostatomegaly with evidence of chronic bladder outlet obstruction. 7. A calculus is contained within a large bladder diverticulum. 8. Suspect emphysema. Hospital Course (1) Acute blood loss anemia: 2nd to upper GI bleeding. Numerous potential sources for such including varices (but they were not actively bleeding during EGD), gastritis, duodenitis, nodules, etc. H/H stable in the 3 days leading up to discharge. Discharge hemoglobin was 8.8. Melena stools resolved. He will continue PPI twice daily. He will take iron supplementation post-discharge as well. (2) GI bleed: see "acute blood loss anemia" above. s/p EGD by Dr Vijay culp findings as above. Cont iron supplementation. Protonix BID. Biopsies from EGD w/o cancer. Colonoscopy without colitis or source of bleeding. (3) Cirrhosis: EGD showed varices, nodules, gastritis, and duodenal erythema. CT a/p on 09/25 showed liver morphology consistent with cirrhosis. Etiology uncertain - no prior h/o alcohol usage or prior fatty liver. I do not have old imaging to compare with this admission's imaging. Ferritin was wnl. HepB, C negative. Ceruloplasmin, autoimmune antibodies negative/normal. Could a prior chemo agent for ALL have caused liver toxicity then cirrhosis? Pharmacy reviewed all of his prior chemo agents - it is theoretically possible that methotrexate use could have contributed to development of cirrhosis. CT abdomen/pelvis with non-occlusive thrombus identified within the splenic vein, the superior mesenteric vein, and the main portal vein. In light of significant thrombocytopenia and recent GI bleeding systemic anticoagulation deferred for now. Cirrhosis was compensated his entire stay. Outpatient f/u with GI will be needed. No evidence of hepatic encephalopathy during the stay. Of note - patient was placed on nadalol for portal HTN but he did NOT tolerate this with rapid development of bradycardia and hypotension. Thus, he is NOT on beta mio at this time. 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 Barr as an outpatient. s/p numerous chemo agents in the past. Pancytopenia appears chronic. Went into remission 1 year ago. (5) HTN (hypertension): Diovan was discontinued at time of admission to [facility] and not restarted. Did not tolerate nadalol with prompt hypotension from such - this has been held/discontinued. BPs have recovered and were normal at time of discharge. (6) HLD (hyperlipidemia): statin d/c in light of cirrhosis (7) History of shingles: Holding valacyclovir (8) Portal vein thrombosis: noted on CT abd/pelvis 2nd to cirrhosis deferring for now on systemic anticoagulation due to GI bleeding and low platelets (9) Pancytopenia: appears chronic. folate deficiency can contribute. b12 level was low-normal. supplement b12/folate. cirrhosis can certainly lead to pancytopenia as well. will need to see his oncologist as well post-d/c to follow his counts. (10) Abnormal TSH: FT4 wnl - no replacement at this time. (11) Folate deficiency: folic acid 1mg daily for 30 days post-discharge. also supplement B12 --- 1000mcg daily for 6-12 months. (12) Diarrhea: c diff toxin was negative. stools improved / diarrhea resolved by time of discharge. no colitis on colonoscopy. multiple polyps and small amount of diverticulosis only on colonoscopy. suspect the melena may have been contributing to his diarrhea. Total Time Total Time Spent Total Time Spent (In Minutes): 45 Total Time Includes: Examination of the Patient, Discharge Planning, Medication Reconciliation and Communication With Other Providers Discharge Plan Discharge Items Patient Disposition: Home - Self-Care Reason For Visit: GI BLEED Discharge Diagnosis: 1. new onset cirrhosis of the liver 2. gastrointestinal bleeding - resolved 3. anemia, low platelets - multifactorial Discharge Goals: Diagnostic testing, Learn about illness and Therapeutic intervention Activity: Resume your previous activity Activity Comment: as tolerated Non-emergency contact: Primary Care Provider and Rehabilitation Team Lead Call non-emergency contact if: you have any medication questions, your pain is unusual for you, your pain is concerning for you and your temperature is above 100.5 Follow-up/Referrals: Nichelle Yip PA-C [Physician Serials Librarian] - 10/10/18 1:40 pm (Please, follow up at [facility] Gastroenterology Office with Nichelle Yip PA-C on WednesdayOctober 10 at 2:00 pm (arrive 1:40 pm). *The office is located at [address] [place] [address] in [facility]. If you need to change or cancel this appointment, call the office at [phone].) Laura Villalba, [Physician] - 10/06/18 9:15 am (Please, follow up at [facility]'s Family Medicine Office with Dr. Villalba's associate, Gini KIMBLE, on October 06 at 9:15 am. She will be your new primary care provider. *The office is located next to [employer] in [place]. If you need to change or cancel this appointment, call the office at [phone].) Diet: Low Sodium (2gm) Addtl Provider Instructions: You were admitted for an upper gastrointestinal (GI) bleed. On your upper endoscopy we found multiple things that could have caused your bleeding including esophageal varices (dilated veins in your esophagus as a result of your cirrhosis), irritation of the stomach, etc. You improved with taking acid reducers. We found that you have cirrhosis of the liver. Despite checking multiple labs we could not find the exact cause of the cirrhosis. You underwent colonoscopy by Dr Linares and this showed hemorrhoids, diverticulosis, and multiple polyps. The polyps were removed. Lastly we found that that you are deficient in folic acid and are low-normal in your B12 level. Recommendations: 1. take vitamin B12 [id number] 1000mcg daily for 1 year. 2. take folic acid 1mg daily for 1 month. 3. take ferrous sulfate 325mg twice daily for 3 months. The iron will cause darkening of your stool and possibly constipation. 4. take a fiber supplement like metamucil daily. 5. take pantoprazole 40mg twice a day. 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 6. DO NOT DRINK ALCOHOL. 7. DO NOT TAKE TYLENOL. 8. DO NOT TAKE ANTI-INFLAMMATORY PILLS. THIS INCLUDES ASPIRIN, MOTRIN, IBUPROFEN, NAPROXEN. 9. You have low platelets. Please avoid activities which could lend itself to increased risk of bleeding. This includes using chain saws, heavy machinery, etc. Follow-up -- see separate section. Return to [facility] if -- * you have fever over 100.5 degrees * you have worsening swelling of your abdomen or legs * you have worsening bruising or bleeding in your skin * you see dark, tarry stools * you see bright red blood in your stools or vomit * you have worsening abdominal pain * any other concerns Prescriptions: New cyanocobalamin (vitamin B-12) [Vitamin B-12] 500 mcg Tablet 1,000 mcg PO QAM Qty: 30 RF: 11 pantoprazole 40 mg Tablet,Delayed Release (Dr/Ec) 40 mg PO BID Qty: 60 RF: 5 ferrous sulfate 325 mg (65 mg iron) Tablet,Delayed Release (Dr/Ec) 325 mg PO BID Qty: 60 RF: 2 folic acid 1 mg tablet 1 mg PO DAILY Qty: 30 RF: 0 Discontinued valsartan [Diovan] 80 mg Tablet 80 mg PO DAILY RF: 0 valacyclovir [Valtrex] 500 mg Tablet 500 mg PO DAILY RF: 0 pravastatin 10 mg Tablet 10 mg PO DAILY RF: 0 inotuzumab ozogamicin 0.9 mg (0.25 mg/mL initial) Recon Soln RF: 0 rituximab 10 mg/mL Concentrate IV RF: 0 cyclophosphamide 1 gram Recon Soln 100 mg IV DAILY RF: 0 methotrexate 2.5 mg/mL Solution RF: 0 cytarabine RF: 0 pegfilgrastim 6 mg/0.6 mL Syringe, W/ Wearable Injector SUBCUT RF: 0 mesna 100 mg/mL Solution RF: 0 vincristine 1 mg/mL Solution 2 mg IV Q7D RF: 0 dexamethasone 1.5 mg Tablet RF: 0 cytarabine 20 mg/mL Solution RF: 0 leucovorin calcium 5 mg Tablet RF: 0 mercaptopurine 50 mg Tablet RF: 0 prednisone 1 mg Tablet 1 mg PO DAILY RF: 0 acetaminophen 325 mg Tablet 325 mg PO Q6H PRN (Reason: Pain) RF: 0 Stand-Alone Forms: [facility] Discharge Orders: Discharge Order (Routine); Ordered 09/30/18 Ordered By: Danielito Osborne Admission Data Admit Date/Time: 09/24/18 11:34 Attending Provider: Danielito Osborne Admit Provider: Carmine Baeza Primary Care Provider: Gini Jung Other Providers: Carmine Baeza ; Vadim Linares Service: Telemetry Other Interventions: Discharge Summary Assessment (RN) Last Done: 09/30/18 13:29 DC Date/Time DO NOT enter until pt leaves facility: 09/30/18 14:26
== END 2018-09-30 14:26 | disposition home or self-care (01) | DRG 378 ==
LOC: ED 09:24 → SUATTDRO 11:34 → 2S 11:34
DX: D62 Acute posthemorrhagic anemia; K92.0 Hematemesis; C91.91 Lymphoid leukemia, unspecified, in remission; I25.2 Old myocardial infarction; I82.891 Chronic embolism and thrombosis of other specified veins; D12.3 Benign neoplasm of transverse colon; K57.30 Diverticulosis of large intestine without perforation or abscess without bleeding; D61.818 Other pancytopenia; D12.2 Benign neoplasm of ascending colon; Z87.891 Personal history of nicotine dependence; K29.70 Gastritis, unspecified, without bleeding; R19.7 Diarrhea, unspecified; D12.8 Benign neoplasm of rectum; E78.5 Hyperlipidemia, unspecified; K74.60 Unspecified cirrhosis of liver; I85.10 Secondary esophageal varices without bleeding; I10 Essential (primary) hypertension

== ENCOUNTER 2023-02-19 14:43 | Observation (INO) ==
[2023-02-19 15:43] LABS: Hematocrit (blood only) 20.9 % (42.0-52.0); Hemoglobin 6.9 g/dl (14.0-18.0); Mean Corpuscular Hemoglobin 38.1 pg (25.0-34.0); Mean Corpuscular Volume 115.5 fL (80.0-100.0); Mean Platelet Volume 12.1 fL (9.4-12.4); Platelet Count 65 K/uL (130-400); RDW Coefficient of Variation 19.9 % (11.5-14.5); Red Blood Count 1.81 M/uL (4.70-6.10)
[2023-02-19 15:46] LABS: Albumin Globulin Ratio 1.5 (0.9-2); Albumin Level 3.8 gm/dl (3.4-5.0); BUN Creatinine Ratio 12.9 (10-20); Calcium 8.9 mg/dl (8.6-10.3); Est GFR (African American) 30.1 ml/min; Globulin 2.5 gm/dl (2.5-4.0); Potassium 4.4 mmol/L (3.5-5.1); Total Protein 6.3 gm/dl (6.0-8.3)
[2023-02-19] MEDS ORDERED: SODIUM CHLORIDE 0.9% 250 ML IV PRN (16:57)
[2023-02-19 18:41] LABS: Basophils # (auto) 0.01 K/uL (0.00-0.20); Basophils % (auto) 0.7 %; Eosinophils # (auto) 0.01 K/uL (0.00-0.50); Eosinophils % (auto) 0.7 %; Lymphocytes # (auto) 0.62 K/uL (1.20-3.40); Lymphocytes % (auto) 44.3 %; Monocytes # (auto) 0.11 K/uL (0.11-0.59); Monocytes % (auto) 7.9 %; Neutrophils # (auto) 0.65 K/uL (1.40-6.50); Neutrophils % (auto) 46.4 %; Ovalocytes 2+; Polychromasia 1+
--- NOTE | 2023-02-19 18:52 | History & Physical Report ---
Date of Service February 19, 2023 Assessment & Plan (1) Severe anemia: (2) ALL (acute lymphoid leukemia) in remission: (3) HTN (hypertension): (4) HLD (hyperlipidemia): (5) Chronic kidney disease, stage 3 (moderate): (6) Myelodysplastic syndrome: Plan Severe anemia/myelodysplastic syndrome secondary to treatment for ALL- Symptoms manifest as shortness of breath, dyspnea on exertion and progressive fatigue Hemoglobin was 6.9 this morning in the outpatient setting, and repeat in the ED was 6.9 this evening Patient is being admitted to the hospital per request of hematology/oncology due to need for irradiated blood which will be obtained from [place] Orders have been written for transfusion of 2 units PRBCs Repeat laboratories in a.m., and after transfusion Myelodysplastic syndrome/ALL- Noted in records to be secondary to treatment for ALL And the likely cause of pancytopenia Neutropenia- ANC 650, has been in similar position since 09/04/2022 Neutropenic precautions Continue prophylaxis: Acyclovir, fluconazole, Bactrim Follow all laboratory serially Hypertension- Hold losartan and furosemide Continue Toprol tartrate 12.5 mg in the evening Acute kidney injury superimposed on CKD- Creatinine 2.25 on admission, with base range 1.50-2.11 Hold losartan Should improve with transfusion History of Present Illness Chief Complaint: The patient was referred to the emergency department by hematology due to hemoglobin of 6.9 in the outpatient setting, which was attributed to be the cause of his progressive shortness of breath and fatigue Primary Care Provider: Laura Villalba DO The patient is a 82-year-old male with past medical history including pre-B cell AL L, esophageal varices, hypertension, hyperlipidemia, thrombocytopenia, cirrhosis, portal vein thrombosis, history of MRI, history of left ventricular apical thrombus and CKD stage III. His hemoglobin was demonstrated to be an a progressive decline, was seen to be 6.9 in the outpatient setting at 830 this morning, and repeated emergency department this afternoon with 6.9 again. Since he required irradiated blood due to his AL L and MDS, hematology requested the patient be admitted into the hospital while his PRBCs were waiting to be sent from [place]. Patient denies any change in stool pattern. Allergies Allergy/AdvReac Type Severity Reaction Status Date / Time No Known Drug Allergies Allergy Verified 02/18/23 12:19 Home Medications Medication Instructions Recorded Confirmed Type losartan 25 mg tablet 25 mg PO QAM 06/18/22 02/19/23 History metoprolol tartrate 25 mg tablet 12.5 mg PO QPM 06/18/22 02/19/23 History pantoprazole 40 mg tablet,delayed 40 mg PO BID #180 tabs 12/22/22 02/19/23 Rx release acyclovir 400 mg tablet 400 mg PO AMPM 02/19/23 02/19/23 History fluconazole 100 mg tablet 100 mg PO QAM 02/19/23 02/19/23 History furosemide 20 mg tablet (Lasix) 20 mg PO 3XWK 02/19/23 02/19/23 History ondansetron HCl 8 mg tablet 8 mg PO Q8 PRN Nausea And Vomiting 02/19/23 02/19/23 History prochlorperazine maleate 10 mg 10 mg PO UD PRN Nausea And Vomiting 02/19/23 02/19/23 History tablet sulfamethoxazole 800 1 tab PO UD 02/19/23 02/19/23 History mg-trimethoprim 160 mg tablet Past Med/Surg History Medical History (Updated 02/20/23 @ 03:55 by Galo Hollingsworth MD) Myelodysplastic syndrome Liver cirrhosis GI bleed 2018 Thrombocytopenia 47,000 11/04/21 CKD (chronic kidney disease) Left inguinal hernia Acute lymphoblastic leukemia (ALL) dx'd 2010 - h/o chemo, follows with CCP-stable per 09/08/21 note CAD (coronary artery disease) s/p stent to unknown artery in 2001 in setting of MA, subsequent in-stent thrombosis with placement of RISHI in 2002; Follows with Dr. Viera. HTN (hypertension) History of chemotherapy History of [place] (myocardial infarction) (2001) Pancytopenia Portal vein thrombosis per record. pt did not report Folate deficiency Surgical History S/P left inguinal hernia repair (12/25/21) Open Left Direct and Sliding indirect Inguinal Hernia Repair, With Mesh, Lipoma of cord. (Left) - Vinicius Shell MD, FACS History of vascular access device removed History of cardiac catheterization multiple - most recent 10 years ago at [facility] in [place], [place] (last stent placed 2002) Hx of LASIK History of coronary artery stent placement Stent 2001, another 2002 (d/t in stent thrombosis) History of esophagogastroduodenoscopy (EGD) last one 09/27/18 Hx of inguinal hernia repair (03/19/15) Repair of right recurrent indirect hernia with Marlex patch and plug technique Rt x 3 Family History Father Coronary heart disease Myocardial infarction Sister Cancer Mother No problems noted. 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 Beliefs That Will Affect Care: None marital status: / Current Living Situation: Alone current occupational status: retired How many Children do You have: 0 Other Information That Helps Us Care for You: No Feels Safe at Home: Yes Safety Concerns: Feels Safe At This Time Childhood Exposure to Second-Hand Smoke: No Diet: regular caffeine: Yes during the past year weight has: remained stable Dental Care, Regularly: No Physical Activity Frequency: Daily Seatbelt Use: always Sunscreen Use: No Assistive Devices: Glasses Assistive Devices Comment: reading glasses Review of Systems Review of Systems: The patient denies chest pain, palpitations, cough, lower extremity swelling, sore throat, fevers, chills, sweats, nausea, vomiting, diarrhea , constipation, abdominal pain, pelvic pain, blood in urine or stool, dysuria, urinary frequency or urgency, headache, memory loss, loss of consciousness, rash, abnormal bruising or bleeding, imbalance, focal weakness, numbness or tingling in arms or legs, generalized ar thralgias or myalgias, back or neck pain, or night sweats. The review of systems is otherwise negative other than for that already noted above, and at least 10 systems have been reviewed. Physical Exam Physical Exam: The patient is awake, alert and oriented 3, well developed and well nourished, normocephalic and atraumatic, lying in bed and in no acute distress. HEENT--PERRL, EOMI, mucous membranes and oropharynx mildly dry. Neck--supple. No JVD. No bruits. Thyroid normal, trachea midline, no a denopathy. Heart--normal S1 and S2. No murmurs, rubs or gallops. Lungs--clear bilaterally, no respiratory distress, no accessory muscle use. Abdomen--normal bowel sounds and soft. Nontender. Nondistended Extremities--no cyanosis or clubbing. No edema. Dermatologic--normal skin turgor, normal color, no abnormal lymph nodes, no rash. Neurologic--cranial nerves II through XII grossly intact. Rheumatologic--normal range of motion. Psychiatric--normal affect. Results & Data Results & Data Vital Signs (Past 12 Hours) Vital Signs Temp Pulse Resp BP Pulse Ox O2 Del Method 02/19/23 14:48 36.6 C 65 20 118/61 98 Room Air Laboratory Results Laboratory Results WBC 1.40 K/ul (4.8-10.8) L 02/19/23 15:19 RBC 1.81 M/uL (4.70-6.10) L 02/19/23 15:19 Hgb 6.9 g/dl (14.0-18.0) L* 02/19/23 15:19 Hct 20.9 % (42.0-52.0) L* 02/19/23 15:19 MCV 115.5 fL (80.0-100.0) H 02/19/23 15:19 MCH 38.1 pg (25.0-34.0) H 02/19/23 15:19 MCHC 33.0 g/dL (32.0-36.0) 02/19/23 15:19 RDW Std Deviation 85.0 fL (36.4-46.3) H 02/19/23 15:19 RDW Coeff of Tere 19.9 % (11.5-14.5) H 02/19/23 15:19 Plt Count 65 K/uL (130-400) L 02/19/23 15:19 MPV 12.1 fL (9.4-12.4) 02/19/23 15:19 Immature Gran % (Auto) 0.0 % 02/19/23 15:19 Neut % (Auto) 46.4 % 02/19/23 15:19 Lymph % (Auto) 44.3 % 02/19/23 15:19 [place] % (Auto) 7.9 % 02/19/23 15:19 Eos % (Auto) 0.7 % 02/19/23 15:19 Baso % (Auto) 0.7 % 02/19/23 15:19 Neut # (Auto) 0.65 K/uL (1.40-6.50) L* 02/19/23 15:19 Lymph # (Auto) 0.62 K/uL (1.20-3.40) L 02/19/23 15:19 [place] # (Auto) 0.11 K/uL (0.11-0.59) 02/19/23 15:19 Eos # (Auto) 0.01 K/uL (0.00-0.50) 02/19/23 15:19 Baso # (Auto) 0.01 K/uL (0.00-0.20) 02/19/23 15:19 Immature Gran # (Auto) 0.00 K/uL (0.01-0.20) L 02/19/23 15:19 Polychromasia 1+ 02/19/23 15:19 Ovalocytes 2+ 02/19/23 15:19 Sodium 139 mmol/L (136-145) 02/19/23 15:19 Potassium 4.4 mmol/L (3.5-5.1) 02/19/23 15:19 Chloride 107 mmol/L (98-107) 02/19/23 15:19 Carbon Dioxide 26 mmol/L (21-32) 02/19/23 15:19 Anion Gap 6 (3-11) 02/19/23 15:19 BUN 29 mg/dl (6-23) H 02/19/23 15:19 Creatinine 2.25 mg/dl (0.6-1.4) H 02/19/23 15:19 Est Cr Clr Drug Dosing 28.0 ml/min 02/19/23 15:19 Est GFR ( Amer) 30.1 ml/min 02/19/23 15:19 Est GFR (Non-Af Amer) 26.0 ml/min 02/19/23 15:19 BUN/Creatinine Ratio 12.9 (10-20) 02/19/23 15:19 Glucose 109 mg/dl (70-99(Fasting)) H 02/19/23 15:19 Calcium 8.9 mg/dl (8.6-10.3) 02/19/23 15:19 Total Bilirubin 1.0 mg/dl (0.2-1.0) 02/19/23 15:19 AST 10 U/L (13-39) L 02/19/23 15:19 ALT 9 U/L (7-52) 02/19/23 15:19 Alkaline Phosphatase 100 U/L (34-104) 02/19/23 15:19 Total Protein 6.3 gm/dl (6.0-8.3) 02/19/23 15:19 Albumin 3.8 gm/dl (3.4-5.0) 02/19/23 15:19 Globulin 2.5 gm/dl (2.5-4.0) 02/19/23 15:19 Albumin/Globulin Ratio 1.5 (0.9-2) 02/19/23 15:19 Blood Type O Positive 02/19/23 15:19 Antibody Screen NEGATIVE 02/19/23 15:19 Crossmatch See Detail 02/19/23 15:19 Code Status & VTE Plan Code Status Full code VTE Prophylaxis Plan VTE Prophylaxis will be ordered: Yes PG Care Time/CCT Total # of Minutes Spent Total Time Spent with Patient: Total time spent is greater than 50% in coordination of care (as documented) at patient's floor/unit and/or counseling patient: Coding Level of Care Code 78850 INT INP/OBS CARE 3/75MIN Diagnoses Severe anemia D64.9 ALL (acute lymphoid leukemia) in remission C91.01 Essential hypertension I10 Hypertension type: essential hypertension Mixed hyperlipidemia E78.2 Hyperlipidemia type: mixed hyperlipidemia Chronic kidney disease, stage 3 (moderate) N18.30 Myelodysplastic syndrome D46.9 (3) HTN (hypertension) Hypertension type: essential hypertension Qualified Code(s): I10 - Essential (primary) hypertension (4) HLD (hyperlipidemia) Hyperlipidemia type: mixed hyperlipidemia Qualified Code(s): E78.2 - Mixed hyperlipidemia
[2023-02-19] MEDS ORDERED: ACETAMINOPHEN 325 MG TAB PO PRN (20:31)
[2023-02-19] MEDS ORDERED: ONDANSETRON 4 MG OD TAB PO PRN (20:31)
[2023-02-19] MEDS ORDERED: ONDANSETRON INJ 2 MG/ML 2 ML VIAL IV PRN (20:31)
--- NOTE | 2023-02-19 20:35 | Emergency Department Note ---
Impression & Plan Severe anemia ED Provider Note NAME: LUÍS LOUIS AGE: 82 SEX: Male INFORMANT: Patient ED PROVIDER(S): Rory Rivas MD CHIEF COMPLAINT: Anemia PLAN: Disposition: Admitted Outpatient prescription management: none Referral: None MEDICAL DECISION MAKING: Patient presented because of abnormal outpatient blood work showing severe anemia. Patient has a history of MDS and leukemia. No significant issues on physical examination. Patient had pancytopenia with severe anemia on his CBC. Hemoglobin was 6.9. Chemistry panel revealed some mild worsening renal insufficiency. Discussed the case with hematology, Dr. Alexander. She recommended transfusion of irradiated packed red blood cells. Given the patient's transfusion yesterday of 1 unit and lack of response to with repeat blood work today 2 units were suggested. Unfortunately this blood is not available here and will take some time to arrive and go through the transfusion process from the [place]. Consultation was made with Dr. Galo Hollingsworth of the [facility] service. Patient was evaluated in the ER for further management. Care/management discussed with: Discussed with wholesale account manager Level of care consideration(s): After review of the information above and other included data, I feel the patient requires escalation of care to admission Triage Nursing notes: reviewed and agree them. Vital Signs: reviewed and remarkable for no significant abnormalities Additional History obtained from: Family regarding his outpatient cancer care Chronic Medical/Social Conditions affecting care: Leukemia Prior/ Outside/ External records reviewed: none Differential Diagnosis: Severe anemia, acute blood loss, complication of MDS, infection, as well as others were entertained. Diagnostics, independently interpreted by me: ECG: none Cardiac Monitoring: none Medical decision rules: none Imaging studies: Deferred HPI: 82 year old Male arrives for evaluation of anemia. Patient has a history of leukemia and MDS. He has received transfusions in the past. Patient received transfusion yesterday and despite receiving 1 unit his repeat blood work today did not reveal any improvement. Patient's hemoglobin was 6.9. Repeat labs done and confirmed 6.9. Patient has some feelings of being tired but denies any recent bleeding issues. Pt denies LOC, headache, fevers, chills, chest pain, breathing difficulties, nausea, vomiting, abdominal pain, back pain, melena, hematochezia, urinary symptoms, numbness, lymphadenopathy, rash, or other complaints.. PAST MEDICAL HISTORY: Leukemia, see below PAST SURGICAL HISTORY: See Below, SOCIAL HISTORY: See Below, retired HOME MEDICATIONS: See Below ALLERGIES: See Below VITALS: See Below PHYSICAL EXAMINATION: GENERAL: Awake, alert, well-appearing, in no distress HENT: Normocephalic, atraumatic. Oropharynx unremarkable. EYES: Pale conjunctiva. Sclera non-icteric. NECK: Inspection normal. Non-tender. Supple. No nuchal rigidity. FROM. No masses. RESPIRATORY: Clear to auscultation. No wheezes. No rales. Normal respiratory effort. CARDIAC: Normal rate. Normal rhythm. No murmurs. No rubs. Extremities warm and well perfused. Pulses equal. No JVD. GI: Soft, non-distended. No tenderness to palpation. No rebound or guarding. No masses. RECTAL: Deferred. MUSCULOSKELETAL: Atraumatic. Chest examination reveals no tenderness. The back is symmetrical on inspection without obvious abnormality. There is no CVA tenderness to palpation. No joint edema. LOWER EXTREMITIES: Calves are equal size bilaterally and non-tender. No edema. No discoloration. NEURO: Normal sensorium. No sensory or motor deficits noted. SKIN: No rash or jaundice noted. PROCEDURES: none CRITICAL CARE: none OBSERVATION NOTE: none Past Med/Surg History Medical History Acute lymphoblastic leukemia (ALL) CAD (coronary artery disease) CKD (chronic kidney disease) Folate deficiency GI bleed History of chemotherapy History of [place] (myocardial infarction) (2001) HTN (hypertension) Left inguinal hernia Liver cirrhosis Pancytopenia Portal vein thrombosis Thrombocytopenia Surgical History History of cardiac catheterization History of coronary artery stent placement History of esophagogastroduodenoscopy (EGD) History of vascular access device Hx of inguinal hernia repair (03/19/15) Hx of LASIK S/P left inguinal hernia repair (12/25/21) Family History Father Coronary heart disease Myocardial infarction Sister Cancer Mother No problems noted. Denies family history of Ovarian cancer Prostate cancer Breast cancer Colorectal cancer Social History Smoking Status: Former smoker Tobacco Type: Cigarettes packs per day: 2; Cigarettes Per Day: [id number] YEARS; Second Hand Exposure: No; Do You Dip or Chew Tobacco: No; Hx Alcohol Use: No Hx Substance Use: No Preferred Language: Telugu Communication Ability: Effective Visual Impairment: No Limitations Hearing Ability: Normal Correction Officer [place] Required: No Beliefs That Will Affect Care: None marital status: / Current Living Situation: Alone current occupational status: retired How many Children do You have: 0 Feels Safe at Home: Yes Childhood Exposure to Second-Hand Smoke: No Diet: regular caffeine: Yes during the past year weight has: remained stable Dental Care, Regularly: No Physical Activity Frequency: Daily Seatbelt Use: always Sunscreen Use: No Assistive Devices: Denture - Upper Allergies Allergies Allergy/AdvReac Type Severity Reaction Status Date / Time No Known Drug Allergies Allergy Verified 02/18/23 12:19 Home Meds Home Medications Medication Instructions Recorded Confirmed losartan 25 mg tablet 25 mg PO QAM 06/18/22 02/19/23 metoprolol tartrate 25 mg tablet 12.5 mg PO QPM 06/18/22 02/19/23 acyclovir 400 mg tablet 400 mg PO AMPM 02/19/23 02/19/23 fluconazole 100 mg tablet 100 mg PO QAM 02/19/23 02/19/23 furosemide 20 mg tablet (Lasix) 20 mg PO 3XWK 02/19/23 02/19/23 ondansetron HCl 8 mg tablet 8 mg PO Q8 PRN Nausea And Vomiting 02/19/23 02/19/23 prochlorperazine maleate 10 mg 10 mg PO UD PRN Nausea And Vomiting 02/19/23 02/19/23 tablet sulfamethoxazole 800 1 tab PO UD 02/19/23 02/19/23 mg-trimethoprim 160 mg tablet Previous Rx's Medication Instructions Recorded pantoprazole 40 mg tablet,delayed 40 mg PO BID #180 tabs 12/22/22 release Results & Data (ED) Vital Signs Vital Signs - 24 hr 02/19/23 14:48 02/19/23 17:20 Temperature 36.6 C 36.6 C Temperature Source Temporal Artery Scan Temporal Artery Scan Pulse Rate 65 Respiratory Rate 20 20 Respiratory Effort / Characteristics Non-Labored Non-Labored Respiratory Depth Normal Normal Blood Pressure 118/61 Blood Pressure [Right Arm] 130/68 Blood Pressure Mean 80 Blood Pressure Mean [Right Arm] 88 Blood Pressure Position [Right Arm] Semi-fowlers Pulse Oximetry 98 98 Oxygen Delivery Method Room Air Room Air Sepsis Recent Fever Within 48 Hours No Sepsis New/Unexplained Change in Mental Status No Sepsis Action Taken by Nursing No Action Required Laboratory Data 02/19/23 15:19 02/19/23 15:19 Lab Results 02/19/23 Range/Units 15:19 WBC 1.40 L (4.8-10.8) K/ul RBC 1.81 L (4.70-6.10) M/uL Hgb 6.9 L* (14.0-18.0) g/dl Hct 20.9 L* (42.0-52.0) % MCV 115.5 H (80.0-100.0) fL MCH 38.1 H (25.0-34.0) pg MCHC 33.0 (32.0-36.0) g/dL RDW Std Deviation 85.0 H (36.4-46.3) fL RDW Coeff of Tere 19.9 H (11.5-14.5) % Plt Count 65 L (130-400) K/uL MPV 12.1 (9.4-12.4) fL Immature Gran % (Auto) 0.0 % Neut % (Auto) 46.4 % Lymph % (Auto) 44.3 % [place] % (Auto) 7.9 % Eos % (Auto) 0.7 % Baso % (Auto) 0.7 % Neut # (Auto) 0.65 L* (1.40-6.50) K/uL Lymph # (Auto) 0.62 L (1.20-3.40) K/uL [place] # (Auto) 0.11 (0.11-0.59) K/uL Eos # (Auto) 0.01 (0.00-0.50) K/uL Baso # (Auto) 0.01 (0.00-0.20) K/uL Immature Gran # (Auto) 0.00 L (0.01-0.20) K/uL Polychromasia 1+ Ovalocytes 2+ Sodium 139 (136-145) mmol/L Potassium 4.4 (3.5-5.1) mmol/L Chloride 107 (98-107) mmol/L Carbon Dioxide 26 (21-32) mmol/L Anion Gap 6 (3-11) BUN 29 H (6-23) mg/dl Creatinine 2.25 H (0.6-1.4) mg/dl Est Cr Clr Drug Dosing 28.0 ml/min Est GFR ( Amer) 30.1 ml/min Est GFR (Non-Af Amer) 26.0 ml/min BUN/Creatinine Ratio 12.9 (10-20) Glucose 109 H (70-99(Fasting)) mg/dl Calcium 8.9 (8.6-10.3) mg/dl Total Bilirubin 1.0 (0.2-1.0) mg/dl AST 10 L (13-39) U/L ALT 9 (7-52) U/L Alkaline Phosphatase 100 (34-104) U/L Total Protein 6.3 (6.0-8.3) gm/dl Albumin 3.8 (3.4-5.0) gm/dl Globulin 2.5 (2.5-4.0) gm/dl Albumin/Globulin Ratio 1.5 (0.9-2) Blood Type O Positive Antibody Screen NEGATIVE Crossmatch See Detail Discharge Plan Visit Data Chief Complaint: Illness Stated Complaint: [facility] SAID TO COME FOR TRANSFUSION ED Provider: Rory Rivas Discharge Problem: Severe anemia Patient Disposition: Admitted As Inpatient
[2023-02-19] MEDS ORDERED: METOPROLOL SUCC 25MG EXT REL TAB PO SCH (21:00)
[2023-02-19] MEDS: PANTOprazole 40 MG TAB PO SCH (21:42)
[2023-02-19] MEDS: ACYCLOVIR 400 MG TAB PO SCH (21:43)
[2023-02-20 07:31] LABS: Albumin Globulin Ratio 1.4 (0.9-2); Albumin Level 3.3 gm/dl (3.4-5.0); BUN Creatinine Ratio 12.6 (10-20); Bilirubin,Total 1.8 mg/dl (0.2-1.0); Calcium 8.5 mg/dl (8.6-10.3); Creatinine Clr Calc Pharmacy 29.3 ml/min; Est GFR (African American) 33.3 ml/min; Est GFR (Non-African American) 28.8 ml/min; Globulin 2.3 gm/dl (2.5-4.0); Potassium 4.6 mmol/L (3.5-5.1); Total Protein 5.6 gm/dl (6.0-8.3)
[2023-02-20 07:58] LABS: Hematocrit (blood only) 22.9 % (42.0-52.0); Hemoglobin 7.8 g/dl (14.0-18.0); Mean Corpuscular Hemoglobin 36.4 pg (25.0-34.0); Mean Corpuscular Hgb Conc 34.1 g/dL (32.0-36.0); Mean Platelet Volume 12.3 fL (9.4-12.4); Platelet Count 46 K/uL (130-400); RDW Coefficient of Variation 21.7 % (11.5-14.5); RDW Standard Deviation 82.5 fL (36.4-46.3); Red Blood Count 2.14 M/uL (4.70-6.10); White Blood Count 1.39 K/ul (4.8-10.8)
--- NOTE | 2023-02-20 08:18 | Hospitalist Progress Note ---
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) Discussion to start 5-azacytidine Neutropenia- ANC 650, has been in similar position since 09/04/2022 Neutropenic precautions Continue prophylaxis: Acyclovir, fluconazole, Bactrim Follow all laboratory serially (2) HTN (hypertension): Plan: Hold losartan and furosemide Continue Toprol tartrate 12.5 mg in the evening (3) Chronic kidney disease, stage 3 (moderate): Plan: Acute kidney injury superimposed on CKD- Creatinine 2.25 on admission, with base range 1.50-2.11 Hold losartan Should improve with transfusion (4) Cirrhosis: Plan: history of cirrhosis , ch elevated Bili Admission and Anticipated Discharge Date Admission Date: February 19, 2023 Results & Data Results & Data Vital Signs (Past 12 Hours) Vital Signs Temp Pulse Pulse Resp BP BP BP 02/20/23 08:08 98.6 F 78 18 116/57 L 02/20/23 05:10 97.9 F 74 18 153/78 H 02/20/23 01:03 98.1 F 80 16 113/64 02/20/23 00:40 97.7 F 70 18 121/64 02/19/23 23:40 97.9 F 67 18 103/54 L 02/19/23 23:10 98.2 F 66 16 114/57 L 02/19/23 22:57 66 02/19/23 22:51 97.9 F 71 18 119/65 02/19/23 22:35 98.2 F 69 18 106/55 L 02/19/23 21:56 97.5 F L 88 18 129/68 02/19/23 21:38 74 121/63 02/19/23 21:30 98.4 F 76 18 103/65 02/19/23 21:28 98.4 F 76 18 103/65 02/19/23 20:38 71 02/19/23 20:31 98.1 F 81 18 131/50 L 02/19/23 20:30 98.1 F 81 18 131/50 L 02/19/23 20:30 98.1 F 81 18 131/50 L Pulse Ox O2 Del Method 02/20/23 08:08 97 Room Air 02/20/23 05:10 94 Room Air 02/20/23 01:03 96 02/20/23 00:40 96 02/19/23 23:40 96 02/19/23 23:10 96 02/19/23 22:57 02/19/23 22:51 96 02/19/23 22:35 95 02/19/23 21:56 98 02/19/23 21:38 02/19/23 21:30 98 02/19/23 21:28 98 02/19/23 20:38 02/19/23 20:31 98 Room Air 02/19/23 20:30 98 Room Air 02/19/23 20:30 98 PG Care Time/CCT Total # of Minutes Spent Total Time Spent with Patient: Total time spent is greater than 50% in coordination of care (as documented) at patient's floor/unit and/or counseling patient: Coding Diagnoses Severe anemia D64.9 Essential hypertension I10 Hypertension type: essential hypertension Chronic kidney disease, stage 3 (moderate) N18.30 Cirrhosis of liver without ascites, unspecified hepatic cirrhosis type K74.60 Hepatic cirrhosis type: unspecified hepatic cirrhosis Ascites presence: without ascites (2) HTN (hypertension) Hypertension type: essential hypertension Qualified Code(s): I10 - Essential (primary) hypertension (4) Cirrhosis Hepatic cirrhosis type: unspecified hepatic cirrhosis Ascites presence: without ascites Qualified Code(s): K74.60 - Unspecified cirrhosis of liver
[2023-02-20 08:45] LABS: Basophils # (auto) 0.02 K/uL (0.00-0.20); Basophils % (auto) 1.4 %; Eosinophils # (auto) 0.02 K/uL (0.00-0.50); Eosinophils % (auto) 1.4 %; Lymphocytes # (auto) 0.65 K/uL (1.20-3.40); Lymphocytes % (auto) 46.8 %; Monocytes # (auto) 0.12 K/uL (0.11-0.59); Monocytes % (auto) 8.6 %; Neutrophils # (auto) 0.58 K/uL (1.40-6.50); Neutrophils % (auto) 41.8 %
[2023-02-20] MEDS ORDERED: FLUCONAZOLE 100 MG TAB PO SCH (09:00)
[2023-02-20] MEDS: ACYCLOVIR 400 MG TAB PO SCH (09:46)
[2023-02-20] MEDS: PANTOprazole 40 MG TAB PO SCH (09:46)
--- NOTE | 2023-02-20 10:53 | Communication Note ---
Date of Service: February 20, 2023 By CMS guidelines, a determination that the admission or continued stay is not medically necessary has been made by a member of the UR committee and lien potter for this hospital stay, therefore a Code 44 will be completed and the Inpatient admission will be changed to outpatient.
--- NOTE | 2023-02-20 10:59 | Communication Note ---
Date of Service: February 20, 2023 By CMS guidelines, a determination that the admission or continued stay is not medically necessary has been made by a member of the UR committee and a micah potter for this hospital stay, therefore a Code 44 will be completed and the Inpatient admission will be changed to outpatient. Danielito Osborne MD Member, Utilization Review Committee
--- NOTE | 2023-02-20 16:29 | Discharge Summary ---
Date of Service February 20, 2023 Admission HPI Per Admitting Provider The patient is a 82-year-old male with past medical history including pre-B cell AL L, esophageal varices, hypertension, hyperlipidemia, thrombocytopenia, cirrhosis, portal vein thrombosis, history of MRI, history of left ventricular apical thrombus and CKD stage III. His hemoglobin was demonstrated to be an a progressive decline, was seen to be 6.9 in the outpatient setting at 830 this morning, and repeated emergency department this afternoon with 6.9 again. Since he required irradiated blood due to his AL L and MDS, hematology requested the patient be admitted into the hospital while his PRBCs were waiting to be sent from [place]. Patient denies any change in stool pattern. Principal Diagnosis Symptomatic anemia Myelodysplastic syndrome due to previous treatment for ALL now with pancytopenia Discharge Exam Pleasant awake alert no distress Card exam is regular lungs are clear Discharge Data Allergies Allergy/AdvReac Type Severity Reaction Status Date / Time No Known Drug Allergies Allergy Verified 02/18/23 12:19 Consultations 02/19/23 18:03 ED Decision to Admit Stat Hospital Course (1) Severe anemia: Severe Symptomatic anemia/myelodysplastic syndrome secondary to treatment for ALL- per request of hematology/oncology due to need for irradiated blood which will be obtained from [place] S/P 2 units PRBCs Repeat HGB 7.8patient states hemoglobin typically is in 7.5 area 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, previous allogenic stem cell transplantation concern for Myelodysplastic syndrome as seen on Bone marrow biopsy (MDS with multilineage dysplasia) Discussion to start 5-azacytidine Neutropenia- ANC 650, has been in similar position since 09/04/2022 Neutropenic precautions will continue after discharge Continue prophylaxis: Acyclovir, fluconazole, Bactrim [facility] (2) HTN (hypertension): Continue Toprol tartrate 12.5 mg in the evening Blood pressure has been low while in the hospital will hold losartan at time of discharge with consideration of discontinuing diuretic therapy in the future also (3) Chronic kidney disease, stage 3 (moderate): Acute kidney injury superimposed on CKD-improving holding losartan at time of discharge Creatinine 2.25 on admission, with base range 1.50-2.11 Diuretic therapy is only 3 times a week will have outpatient follow-up to determine if this is appropriate (4) Cirrhosis: history of cirrhosis , ch elevated Bili Total Time Total Time Spent Total Time Spent (In Minutes): It required greater than 30 minutes to prepare this patient for discharge. Discharge Plan Discharge Items Patient Disposition: Home - Self-Care Reason For Visit: SYMPTOMATIC ANEMIA Discharge Diagnosis: symptomatic anemia Myelodysplastic syndrome, likely transfusion dependent Activity: Resume your previous activity Non-emergency contact: Primary Care Provider Call non-emergency contact if: your symptoms worsen Follow-up/Referrals: Laura Villalba, [Primary Care Provider] - Diet: Regular Addtl Attending Provider Instructions: please follow with your oncologist and be sure to have a blood test next week Pending Studies at Discharge: No Stand-Alone Forms: My OB10, Smoking Cessation Medications and DC Order Prescriptions: Continued pantoprazole 40 mg tablet,delayed release (DR/EC) 40 mg PO BID Qty: 180 1RF metoprolol tartrate 25 mg tablet 12.5 mg PO QPM ondansetron HCl 8 mg tablet 8 mg PO Q8 PRN (Reason: Nausea And Vomiting) prochlorperazine maleate 10 mg tablet 10 mg PO UD PRN (Reason: Nausea And Vomiting) fluconazole 100 mg tablet 100 mg PO QAM sulfamethoxazole-trimethoprim 800-160 mg tablet 1 tab PO UD Rx Instructions: pt cant remember the order acyclovir 400 mg tablet 400 mg PO AMPM furosemide [Lasix] 20 mg tablet 20 mg PO 3XWK Rx Instructions: take daily on MON,WED,FRI morning Discontinued losartan 25 mg tablet 25 mg PO QAM Discharge Orders: Discharge Order (Routine); Ordered 02/20/23 Ordered By: Saul Fernando Admission Data Admit Date/Time: 02/19/23 18:51 Attending Provider: Saul Fernando Admit Provider: Galo Hollingsworth Primary Care Provider: Laura Villalba Other Providers: Galo Hollingsworth Other Interventions: Discharge Summary Assessment (RN) Last Done: 02/20/23 11:25 Coding Level of Care Code 00544 INP/OBS DISCH >30 MIN Diagnoses Severe anemia D64.9 Essential hypertension I10 Hypertension type: essential hypertension Chronic kidney disease, stage 3 (moderate) N18.30 Cirrhosis of liver without ascites, unspecified hepatic cirrhosis type K74.60 Hepatic cirrhosis type: unspecified hepatic cirrhosis Ascites presence: without ascites
--- NOTE | 2023-02-21 09:35 | Electrocardiogram Report ---
Test Reason : Blood Pressure : / mmHG Vent. Rate : 066 BPM Atrial Rate : 066 BPM P-R Int : 244 ms QRS Dur : 112 ms QT Int : 436 ms P-R-T Axes : 053 -26 028 degrees QTc Int : 457 ms Sinus rhythm with 1st degree A-V block Inferior infarct (cited on or before 24-SEP-2018) Anterolateral infarct (cited on or before 24-SEP-2018) Abnormal ECG When compared with ECG of 24-SEP-2018 09:57, OH interval has increased Vent. rate has decreased BY 56 BPM Confirmed by Mark Rich ([id number]) on 02/21/2023 9:35:08 AM Referred By: REFERRED SELF Confirmed By:Mark Rich
== END 2023-02-20 11:36 | disposition home or self-care (01) | DRG 809 ==
LOC: ED 14:43 → 2N 18:51 → INTOOBSV 18:51 → SUATTDRO 18:51 → 2N 20:04

== ENCOUNTER 2024-07-04 14:05 | Observation (INO) ==
[2024-07-04] MEDS ORDERED: SODIUM CHLORIDE 0.9% 100 ML IV PRN (14:12)
--- NOTE | 2024-07-04 14:33 | Emergency Department Note ---
Impression & Plan Symptomatic anemia, Weakness, Shortness of breath, Myelodysplastic syndrome ED Provider Note NAME: LUÍS LOUIS AGE: 84 SEX: M : 1940 ARRIVES VIA: Walk-In INFORMANT: Patient ED PROVIDER(S): Mark Ellison DO CHIEF COMPLAINT: Anemia HPI: Patient is an 84-year-old male with a past medical history of ALL, esophageal varices, hypertension, hyperlipidemia, thrombocytopenia, cirrhosis, and history of PA who presents to the ER for weakness and shortness of breath. He had blood work done as an outpatient which showed a severe anemia. He was referred in. He denies any black or tarry stools. He notes this is the longest that he has gone without a transfusion. No chest pain. No dysuria, urgency or frequency. No other exacerbating or remitting factors. ADDITIONAL HISTORY OBTAINED: Per HPI Chronic Medical/Social Conditions Affecting Care: Per HPI PAST MEDICAL HISTORY:See Below PAST SURGICAL HISTORY:See Below FAMILY HISTORY:See Below SOCIAL HISTORY:See Below HOME MEDICATIONS:See Below ALLERGIES:See Below VITALS:See Below PHYSICAL EXAMINATION: GENERAL: Sitting up in bed, alert, well appearing, well nourished, no distress, non-toxic EYE EXAM: normal conjunctiva. PERRL and EOM's grossly intact. OROPHARYNX: mucous membranes are moist NECK: supple, no nuchal rigidity, no adenopathy, non-tender LUNGS: Clear to auscultation. Normal chest wall mechanics HEART: no murmurs, S1 normal and S2 normal ABDOMEN: abdomen soft, non-tender, normo-active bowel sounds, no masses, no rebound or guarding. UPPER EXTREMITIES: upper extremities are grossly normal. LOWER EXTREMITIES: No pitting edema. NEURO EXAM: Normal sensorium, cranial nerves II-XII grossly intact, normal speech, no gross weakness of arms, no gross weakness of legs. MEDICAL DECISION MAKING: Patient is an 84-year-old male who presents ER with a history of a LL/myelodysplastic syndrome for anemia and exertional shortness of breath. IV was established and blood work was obtained. Labs show a white count of 0.92, hemoglobin of 4.4, platelet count of 55. Severe neutropenia at 340. INR at 1.2. BMP with a creatinine 1.8. LFTs and bilirubin is unremarkable. Patient was typed and crossed and ordered for 2 units of PRBCs while here. Discussed case with the hospitalist for further evaluation management treatment. Consent was obtained by myself at bedside. Patient denies any black stools or tarry stools. No bright red blood per rectum. Consults/Care Managements Discussions: Per MDM Triage Nursing notes reviewed. Limited review of prior medical records performed Vital Signs: reviewed and remarkable for no significant abnormalities Differential diagnosis: Infection, dehydration, metabolic abnormality, hypo/hyperglycemia, electrolyte disturbance, anemia, hypoxia, cardiac sources, intracerebral event, toxicologic, neurologic, as well as other pathologies. ER treatment provided: See below Diagnostics interpreted by me include EKG and cardiac monitoring as listed below: -Cardiac Monitoring: An order was placed for continuous cardiac monitoring. The monitor shows a rate of 90 with sinus rhythm. -ECG: none -Laboratory studies:Interpreted by me as stated above in MDM and shown below. Imaging studies: Xrays: As interpreted by me:none CTs show: none Procedures:none Critical Care: I have personally spent 33 minutes of critical care time in the direct management of this patient. This includes bedside care, interpretation of diagnostic studies, and testing, discussion with consultants, patient, and family members, and other required patient management activities. This 33 minutes is in excess of all separately billable procedures. Past Med/Surg History Problem List (Updated 07/04/24 @ 18:13 by Mark Ellison DO) Myelodysplastic syndrome (Acute) Shortness of breath (Acute) Weakness (Acute) Symptomatic anemia (Acute) Acute anemia Myelodysplastic syndrome (Acute) Severe anemia (Acute) Esophageal varices Pancytopenia (Acute) HTN (hypertension) HLD (hyperlipidemia) Thrombocytopenia (Acute) Cirrhosis Portal vein thrombosis Left inguinal hernia History of PA (myocardial infarction) (2001) Left ventricular apical thrombus (03/2019) Chronic kidney disease, stage 3 (moderate) (Acute) Medical History Liver cirrhosis GI bleed Thrombocytopenia CKD (chronic kidney disease) Left inguinal hernia Acute lymphoblastic leukemia (ALL) CAD (coronary artery disease) HTN (hypertension) History of chemotherapy Portal vein thrombosis Folate deficiency Surgical History S/P left inguinal hernia repair (12/25/21) History of vascular access device History of cardiac catheterization Hx of LASIK History of coronary artery stent placement History of esophagogastroduodenoscopy (EGD) Hx of inguinal hernia repair (03/19/15) Family History Father Coronary heart disease Myocardial infarction Sister Cancer Mother No problems noted. Denies family history of Ovarian cancer Prostate cancer Breast cancer Colorectal cancer Social History Smoking Status: Never smoker Tobacco Type: Cigarettes Age Started Using Tobacco: 17; Age Quit Using Tobacco: 59; packs per day: 2; Cigarettes Per Day: [id number] YEARS; Second Hand Exposure: No; Do You Dip or Chew Tobacco: No; Hx Alcohol Use: No Hx Substance Use: No Preferred Language: Polish Communication Ability: Effective Visual Impairment: No Limitations Hearing Ability: Normal Junior Graphic Designer Required: No Beliefs That Will Affect Care: None marital status: / Current Living Situation: Alone current occupational status: retired How many Children do You have: 0 Feels Safe at Home: Yes Childhood Exposure to Second-Hand Smoke: No Diet: regular Diet Comment: regular caffeine: Yes during the past year weight has: remained stable Dental Care, Regularly: No Physical Activity Frequency: Daily Seatbelt Use: always Sunscreen Use: No Assistive Devices: Glasses Allergies Allergies Allergy/AdvReac Type Severity Reaction Status Date / Time levofloxacin [From Levaquin] Allergy Mild Rash Verified 07/04/24 15:07 Home Meds Home Medications Medication Instructions Recorded Confirmed acyclovir 400 mg tablet 400 mg PO BID 02/19/23 07/04/24 fluconazole 100 mg tablet 100 mg PO QAM 02/19/23 07/04/24 cefdinir 300 mg capsule 300 mg PO BID 07/01/23 07/04/24 metoprolol succinate 25 mg 12.5 mg PO QPM 07/04/24 07/04/24 tablet,extended release 24 hr (Toprol XL) sulfamethoxazole 800 1 tab PO 3XWK 07/04/24 07/04/24 mg-trimethoprim 160 mg tablet Previous Rx's Medication Instructions Recorded pantoprazole 40 mg tablet,delayed 40 mg PO BID #180 tabs 01/21/24 release Results & Data (ED) Vital Signs Vital Signs - 24 hr 07/04/24 14:09 07/04/24 14:12 07/04/24 15:06 Temperature 36.4 C L Temperature Source Temporal Artery Scan Pulse Rate 89 74 76 Respiratory Rate 19 Respiratory Effort / Characteristics Non-Labored Spontaneous Respiratory Depth Normal Respiratory Pattern Regular Blood Pressure 107/52 L Blood Pressure Mean 70 Blood Pressure Position Sitting Pulse Oximetry 98 99 Oxygen Delivery Method Room Air Room Air Sepsis Recent Fever Within 48 Hours No Sepsis New/Unexplained Change in Mental Status No Sepsis Action Taken by Nursing No Action Required 07/04/24 15:48 Temperature 36.7 C Temperature Source Oral Pulse Rate 77 Respiratory Rate 16 Respiratory Effort / Characteristics Respiratory Depth Respiratory Pattern Blood Pressure 134/62 Blood Pressure Mean 86 Blood Pressure Position Pulse Oximetry 98 Oxygen Delivery Method Sepsis Recent Fever Within 48 Hours Sepsis New/Unexplained Change in Mental Status Sepsis Action Taken by Nursing Laboratory Data 07/04/24 14:33 07/04/24 14:33 Lab Results 07/04/24 Range/Units 14:33 WBC 0.92 L* (4.8-10.8) K/ul RBC 1.11 L (4.70-6.10) M/uL Hgb 4.4 L* (14.0-18.0) g/dl Hct 13.1 L* (42.0-52.0) % MCV 118.0 H (80.0-100.0) fL MCH 39.6 H (25.0-34.0) pg MCHC 33.6 (32.0-36.0) g/dL RDW Std Deviation 74.7 H (36.4-46.3) fL RDW Coeff of Tere 17.8 H (11.5-14.5) % Plt Count 55 L (130-400) K/uL MPV 12.4 (9.4-12.4) fL Immature Gran % (Auto) 1.1 % Neut % (Auto) 36.9 % Lymph % (Auto) 51.1 % Knott % (Auto) 8.7 % Eos % (Auto) 2.2 % Baso % (Auto) 0.0 % Neut # (Auto) 0.34 L* (1.40-6.50) K/uL Lymph # (Auto) 0.47 L (1.20-3.40) K/uL Knott # (Auto) 0.08 L (0.11-0.59) K/uL Eos # (Auto) 0.02 (0.00-0.50) K/uL Baso # (Auto) 0.00 (0.00-0.20) K/uL Immature Gran # (Auto) 0.01 (0.01-0.20) K/uL Anisocytosis Present Tear Drop Cells 1+ Ovalocytes 1+ PT 12.8 H (9.0-12.0) Seconds INR 1.2 H (0.9-1.1) APTT 23 (21-31) Seconds PTT Ratio 0.9 Sodium 138 (136-145) mmol/L Potassium 4.6 (3.5-5.1) mmol/L Chloride 109 H (98-107) mmol/L Carbon Dioxide 26 (21-32) mmol/L Anion Gap 3 (3-11) BUN 43 H (6-23) mg/dl Creatinine 1.83 H (0.6-1.4) mg/dl Est Cr Clr Drug Dosing 29.5 ml/min eGFR 35.72 BUN/Creatinine Ratio 23.5 H (10-20) Glucose 120 H (70-99(Fasting)) mg/dl Calcium 9.0 (8.6-10.3) mg/dl Total Bilirubin 0.7 (0.2-1.0) mg/dl AST 21 (13-39) U/L ALT 21 (7-52) U/L Alkaline Phosphatase 97 (34-104) U/L Total Protein 6.1 (6.0-8.3) gm/dl Albumin 4.0 (3.4-5.0) gm/dl Globulin 2.1 L (2.5-4.0) gm/dl Albumin/Globulin Ratio 1.9 (0.9-2) Blood Type O Positive Antibody Screen NEGATIVE Crossmatch See Detail Discharge Plan Visit Data Chief Complaint: Referred by Doctor Stated Complaint: REFERRED BY DOCTOR ED Provider: Mark Ellison Discharge Problem: Symptomatic anemia, Weakness, Shortness of breath, Myelodysplastic syndrome Patient Disposition: Admitted As Inpatient Condition: Fair Discharge Instructions Interventions: ED Discharge Assessment Last Done: 07/04/24 17:26
[2024-07-04 15:09] LABS: Albumin Globulin Ratio 1.9 (0.9-2); BUN Creatinine Ratio 23.5 (10-20); Bilirubin,Total 0.7 mg/dl (0.2-1.0); Creatinine Clr Calc Pharmacy 29.5 ml/min; Globulin 2.1 gm/dl (2.5-4.0); Potassium 4.6 mmol/L (3.5-5.1); Total Protein 6.1 gm/dl (6.0-8.3)
[2024-07-04 15:14] LABS: Hematocrit (blood only) 13.1 % (42.0-52.0); Hemoglobin 4.4 g/dl (14.0-18.0); Mean Corpuscular Hemoglobin 39.6 pg (25.0-34.0); Mean Corpuscular Hgb Conc 33.6 g/dL (32.0-36.0); Mean Platelet Volume 12.4 fL (9.4-12.4); Platelet Count 55 K/uL (130-400); RDW Coefficient of Variation 17.8 % (11.5-14.5); RDW Standard Deviation 74.7 fL (36.4-46.3); Red Blood Count 1.11 M/uL (4.70-6.10); White Blood Count 0.92 K/ul (4.8-10.8)
--- NOTE | 2024-07-04 15:18 | History & Physical Report ---
"Date of Service July 04, 2024 Assessment & Plan (1) Acute anemia: (2) Myelodysplastic syndrome: (3) Pancytopenia: (4) ALL (acute lymphoid leukemia) in remission: (5) Cirrhosis: Jeramie Smith is a 84M with a PMHx of myelodysplastic syndrome, AL L (in remission), pancytopenia, hypertension, CKD 3, cirrhosis and history of NE who presents to the ER at request of his PCP for low outpatient labs. Hemoglobin on outpatient labs was 4.6. He was ordered 2 units of blood by the ER which have not been given at time of admission as his blood has to come from [place]. Admitted for transfusions, and possible PT eval if still feeling weak #Acute Anemia | MDS | Chronic Pancytopenia | ALL - in remission Follows with heme/onc - Dr. Roach, no active treatment, last transfusion ~ 3 months ago 2 Units PRBCs ordered by ER - check CBC after this Continue home prophylaxis: acyclovir, cefdinir, bactrim and fluconazole PT/OT AM CBC and BMP #CKD3 Baseline Cr 1.4-1.5 Cr 1.92 on admission - suspect will improve with blood. Defer IV fluids on admission pending repeat since getting blood #Cirrhosis - chronic LFTs WNL on admission #HTN - continue Metoprolol Dispo: admit to PCU DVT proh: hold chemical, SCDs CODE STATUS: chest compressions okay, no intubation. Discussed with patient that chest compressions not likely to be successful without intubation to protect his airway and he was okay with this updated at bedside / History of Present Illness Chief Complaint: abnormal labs Primary Care Provider: Laura Villalba DO Luis is a 84M with a PMHx of myelodysplastic syndrome, AL L (in remission), pancytopenia, hypertension, CKD 3, cirrhosis and history of NE who presents to the ER at request of his PCP for low outpatient labs. Hemoglobin on outpatient labs was 4.6. He was ordered 2 units of blood by the ER however these had not been administered at the time of admission - he requires blood from the blood bank in [place]. Reports feeling very very tried over the last four days. Appetite is poor at baseline, but worse over the last few days. Denies lightheadedness or dizziness. No Fall. No shortness of breath. Does not think he is on any active treatment for MDS. Has not had any sort of transfusion in 3 months. ER course: 2units PRBCs ordered Allergies Allergy/AdvReac Type Severity Reaction Status Date / Time levofloxacin [From Levaquin] Allergy Mild Rash Verified 07/04/24 15:07 Home Medications Medication Instructions Recorded Confirmed Type acyclovir 400 mg tablet 400 mg PO BID 02/19/23 07/04/24 History fluconazole 100 mg tablet 100 mg PO QAM 02/19/23 07/04/24 History cefdinir 300 mg capsule 300 mg PO BID 07/01/23 07/04/24 History pantoprazole 40 mg tablet,delayed 40 mg PO BID #180 tabs 01/21/24 07/04/24 Rx release metoprolol succinate 25 mg 12.5 mg PO QPM 07/04/24 07/04/24 History tablet,extended release 24 hr (Toprol XL) sulfamethoxazole 800 1 tab PO 3XWK 07/04/24 07/04/24 History mg-trimethoprim 160 mg tablet Past Med/Surg History Problem List (Updated 07/04/24 @ 15:51 by Nichelle Prieto PA-C) Acute anemia Myelodysplastic syndrome (Acute) Severe anemia (Acute) Esophageal varices Pancytopenia (Acute) HTN (hypertension) HLD (hyperlipidemia) Thrombocytopenia (Acute) Cirrhosis Portal vein thrombosis Left inguinal hernia History of NE (myocardial infarction) (2001) Left ventricular apical thrombus (03/2019) Chronic kidney disease, stage 3 (moderate) (Acute) Medical History Liver cirrhosis GI bleed Thrombocytopenia CKD (chronic kidney disease) Left inguinal hernia Acute lymphoblastic leukemia (ALL) CAD (coronary artery disease) HTN (hypertension) History of chemotherapy Portal vein thrombosis Folate deficiency Surgical History S/P left inguinal hernia repair (12/25/21) History of vascular access device History of cardiac catheterization Hx of LASIK History of coronary artery stent placement History of esophagogastroduodenoscopy (EGD) Hx of inguinal hernia repair (03/19/15) Family History Father Coronary heart disease Myocardial infarction Sister Cancer Mother No problems noted. Denies family history of Ovarian cancer Prostate cancer Breast cancer Colorectal cancer Social History Smoking Status: Never smoker Tobacco Type: Cigarettes Age Started Using Tobacco: 17; Age Quit Using Tobacco: 59; packs per day: 2; Cigarettes Per Day: [id number] YEARS; Second Hand Exposure: No; Do You Dip or Chew Tobacco: No; Hx Alcohol Use: No Hx Substance Use: No Preferred Language: Bulgarian Communication Ability: Effective Visual Impairment: No Limitations Hearing Ability: Normal Food Supervisor Required: No Beliefs That Will Affect Care: None marital status: / Current Living Situation: Alone current occupational status: retired How many Children do You have: 0 Feels Safe at Home: Yes Childhood Exposure to Second-Hand Smoke: No Diet: regular Diet Comment: regular caffeine: Yes during the past year weight has: remained stable Dental Care, Regularly: No Physical Activity Frequency: Daily Seatbelt Use: always Sunscreen Use: No Assistive Devices: Glasses Review of Systems Review of Systems: All systems reviewed & are unremarkable except as noted in Subjective Physical Exam Physical Exam: General: NAD, VS as above, lying in bed, pleasant HEENT: MM dry Resp: normal respiratory effort, lungs clear to auscultation CV: RRR, no murmur, Abd: normal bowel sounds, non tender, no hepatosplenomegaly Extremities: Moves all extremities, no edema Neuro: A&O x3, Skin: intact, no lesions noted Results & Data Results & Data Vital Signs (Past 12 Hours) Vital Signs Temp Pulse Resp BP Pulse Ox O2 Del Method 07/04/24 15:06 76 07/04/24 14:12 74 99 Room Air 07/04/24 14:09 97.5 F L 89 19 107/52 L 98 Room Air Laboratory Results cbc and chemistry reviewed Supervising Physician Co-Signing Physician Notes Patient was seen and examined independently I discussed the case with Nichelle IQBAL I reviewed pertinent past medical social family history and also the plan of care and agree with the plan of care. pt presents with weakness and is found to be significantly anemic. Has a history of myelodysplastic syndrome and frequently is pancytopenic. He has been transfusion dependent and he states he is receiving over 100 transfusions. He has had no increase in melena or blood loss or bruising. He does not feel short of breath has had no chest pain Physical exam he is pale, card exam is regular without murmurs, his lungs are clear, his abdomen is NABS and soft and extremities are without edema Pancytopenia associated with myelodysplastic syndrome with need of transfusion support. Will transfuse 2 units recheck hemoglobin may need an additional third unit. Any exceptions will be noted below PG Care Time/CCT Total # of Minutes Spent Total Time Spent with Patient: Total time spent is greater than 50% in coordination of care (as documented) at patient's floor/unit and/or counseling patient: Coding Level of Care Code 02674 INT INP/OBS CARE MIN Diagnoses Acute anemia D64.9 Myelodysplastic syndrome D46.9 Pancytopenia D61.818 ALL (acute lymphoid leukemia) in remission C91.01 Cirrhosis of liver without ascites, unspecified hepatic cirrhosis type K74.60 Ascites presence: without ascites Hepatic cirrhosis type: unspecified hepatic cirrhosis (5) Cirrhosis Ascites presence: without ascites Hepatic cirrhosis type: unspecified hepatic cirrhosis Qualified Code(s): K74.60 - Unspecified cirrhosis of liver"
[2024-07-04 15:24] LABS: INR 1.2 (0.9-1.1); Partial Thromboplastin Ratio 0.9; Partial Thromboplastin Time 23 Seconds (21-31); Prothrombin Time 12.8 Seconds (9.0-12.0)
[2024-07-04 16:24] LABS: Anisocytosis Present; Ovalocytes 1+; Tear Drop Cells 1+
[2024-07-04 16:27] LABS: Eosinophils # (auto) 0.02 K/uL (0.00-0.50); Eosinophils % (auto) 2.2 %; Immature Granulocytes # (auto) 0.01 K/uL (0.01-0.20); Immature Granulocytes % (auto) 1.1 %; Lymphocytes # (auto) 0.47 K/uL (1.20-3.40); Lymphocytes % (auto) 51.1 %; Monocytes # (auto) 0.08 K/uL (0.11-0.59); Monocytes % (auto) 8.7 %; Neutrophils # (auto) 0.34 K/uL (1.40-6.50); Neutrophils % (auto) 36.9 %
[2024-07-04] MEDS ORDERED: MELATONIN 3 MG TAB PO PRN (17:45)
[2024-07-04] MEDS ORDERED: POLYETHYLENE (MIRALAX) 17 GM PACK PO PRN (17:45)
[2024-07-04] MEDS ORDERED: ACETAMINOPHEN 325 MG TAB PO PRN (17:45)
[2024-07-04] MEDS ORDERED: ONDANSETRON INJ 2 MG/ML 2 ML VIAL IV PRN (17:45)
[2024-07-04] MEDS: ACYCLOVIR 400 MG TAB PO SCH (21:05)
[2024-07-04] MEDS: PANTOprazole 40 MG TAB PO SCH (21:06)
[2024-07-04] MEDS: CEFDINIR 300 MG CAP PO SCH (21:06)
[2024-07-04] MEDS: METOPROLOL SUCC 25MG EXT REL TAB PO SCH (21:07)
[2024-07-05] MEDS ORDERED: SODIUM CHLORIDE 0.9% 100 ML IV PRN (00:52)
[2024-07-05 00:56] LABS: Hematocrit (blood only) 15.5 % (42.0-52.0); Hemoglobin 5.3 g/dl (14.0-18.0); Mean Corpuscular Hemoglobin 35.1 pg (25.0-34.0); Mean Corpuscular Hgb Conc 34.2 g/dL (32.0-36.0); Mean Corpuscular Volume 102.6 fL (80.0-100.0); Mean Platelet Volume 12.5 fL (9.4-12.4); Platelet Count 47 K/uL (130-400); RDW Standard Deviation 91.2 fL (36.4-46.3); Red Blood Count 1.51 M/uL (4.70-6.10); White Blood Count 0.84 K/ul (4.8-10.8)
[2024-07-05 07:51] VITALS: O2SAT 97
[2024-07-05] MEDS: FLUCONAZOLE 100 MG TAB PO SCH (07:56)
[2024-07-05] MEDS: SULFAMETHOXAZOLE/TRIMETHOPRIM DS 800/160MG TAB PO SCH (07:57)
[2024-07-05 07:58] LABS: Hematocrit (blood only) 21.9 % (42.0-52.0); Hemoglobin 7.6 g/dl (14.0-18.0); Mean Corpuscular Hemoglobin 33.5 pg (25.0-34.0); Mean Corpuscular Hgb Conc 34.7 g/dL (32.0-36.0); Mean Corpuscular Volume 96.5 fL (80.0-100.0); Mean Platelet Volume 11.8 fL (9.4-12.4); Platelet Count 40 K/uL (130-400); RDW Coefficient of Variation 24.2 % (11.5-14.5); RDW Standard Deviation 79.6 fL (36.4-46.3); Red Blood Count 2.27 M/uL (4.70-6.10); White Blood Count 0.81 K/ul (4.8-10.8)
[2024-07-05 08:02] LABS: BUN Creatinine Ratio 22.2 (10-20); Calcium 8.7 mg/dl (8.6-10.3); Creatinine Clr Calc Pharmacy 33.3 ml/min; Potassium 4.6 mmol/L (3.5-5.1)
[2024-07-05 08:32] LABS: Ovalocytes 1+; Polychromasia 1+; Tear Drop Cells 1+
[2024-07-05 08:33] LABS: Eosinophils # (auto) 0.01 K/uL (0.00-0.50); Eosinophils % (auto) 1.2 %; Immature Granulocytes # (auto) 0.07 K/uL (0.01-0.20); Immature Granulocytes % (auto) 8.6 %; Lymphocytes # (auto) 0.32 K/uL (1.20-3.40); Lymphocytes % (auto) 39.5 %; Monocytes # (auto) 0.09 K/uL (0.11-0.59); Monocytes % (auto) 11.1 %; Neutrophils # (auto) 0.32 K/uL (1.40-6.50); Neutrophils % (auto) 39.6 %
--- NOTE | 2024-07-05 11:00 | Discharge Summary ---
"Discharge Summary Date of Service July 05, 2024 Principal Dx & Hospital Course #1 = Principal Diagnosis (1) Acute anemia: (2) Myelodysplastic syndrome: (3) Pancytopenia: (4) ALL (acute lymphoid leukemia) in remission: (5) Cirrhosis: Plan #Acute Anemia | MDS | Chronic Pancytopenia | ALL - in remission Luis is a 84M with a PMHx of myelodysplastic syndrome, AL L (in remission), pancytopenia, hypertension, CKD 3, cirrhosis and history of CO who presents to the ER at request of his PCP for low outpatient labs, His last transfusion was about 3 months ago. Hemoglobin on outpatient labs was 4.6. He was ordered 2 units of blood by the ER Which brought his hemoglobin up to 5.3. 2 additional units ordered for hemoglobin of 7.6. Patient is feeling much better today, more energized, remains hemodynamically stable. Dr. Roach was notified of patient's admission and will plan to follow him closely in the outpatient setting. Ambulating around the room without difficulty. Stable for discharge home today. Continue home prophylaxis: acyclovir, cefdinir, bactrim and fluconazole #CKD3 Baseline Cr 1.5-1.6 Cr 1.92 on admission - Deferred fluids with the volume of blood, creatinine improved to 1.62-day of discharge, appetite is also improving suspect this will continue to improve #Cirrhosis - chronic LFTs WNL on admission #HTN - continue Metoprolol Dispo discharged home today with close heme-onc follow-up updated at bedside 07/04 Notes For Next Care Provider recommend repeat labs within the next week Medication Changes From Visit none Admission HPI Per Admitting Provider Luis is a 84M with a PMHx of myelodysplastic syndrome, AL L (in remission), pancytopenia, hypertension, CKD 3, cirrhosis and history of CO who presents to the ER at request of his PCP for low outpatient labs. Hemoglobin on outpatient labs was 4.6. He was ordered 2 units of blood by the ER however these had not been administered at the time of admission - he requires blood from the blood bank in [place]. Reports feeling very very tried over the last four days. Appetite is poor at baseline, but worse over the last few days. Denies lightheadedness or dizziness. No Fall. No shortness of breath. Does not think he is on any active treatment for MDS. Has not had any sort of transfusion in 3 months. ER course: 2units PRBCs ordered Discharge Exam General: NAD, VS as above, lying in bed, pleasant HEENT: MM dry Resp: normal respiratory effort, lungs clear to auscultation CV: RRR, no murmur, Abd: normal bowel sounds, non tender, no hepatosplenomegaly Extremities: Moves all extremities, no edema Neuro: A&O x3, Skin: intact, no lesions noted Discharge Plan Discharge Items Patient Disposition: Home - Self-Care Reason For Visit: ACUTE ANEMIA, MDS Discharge Diagnosis: acute anemia Condition on Discharge: Fair Activity: Resume your previous activity Bathing: No limitations Weightbearing: Full weightbearing Non-emergency contact: Primary Care Provider and Oncologist Call non-emergency contact if: you have any medication questions, your symptoms worsen, your pain is not controlled and your temperature is above 101 Follow-up/Referrals: Laura Villalba DO [Primary Care Provider] - 07/11/24 9:20 am (Hospital follow up on July 11 at 9:20 am.) Tavon Roach MD [Physician] - Diet: Regular Addtl Attending Provider Instructions: Mr. Greer, You were hospitalized after having low hemoglobin on outpatient labs. This is likely secondary to your MDS - thankfully your counts have improved after 4 units of blood and you are feeling much better. You are safe to discharge to home today and follow up with Dr. Roach next week. He is aware that you were hospitalized and will likely do repeat blood work soon. If you feel light headed or dizzy or have any signs of GI bleeding please contact your PCP or return to the ER. No changes to your home medications. Thank you for allowing us to participate in your care! Pending Studies at Discharge: No Stand-Alone Forms: My [employer], Smoking Cessation Medications and DC Order Prescriptions: Continued pantoprazole 40 mg tablet,delayed release (DR/EC) 40 mg PO BID Qty: 180 1RF cefdinir 300 mg capsule 300 mg PO BID metoprolol succinate [Toprol XL] 25 mg tablet extended release 24 hr 12.5 mg PO QPM acyclovir 400 mg tablet 400 mg PO BID sulfamethoxazole-trimethoprim 800-160 mg tablet 1 tab PO 3XWK Rx Instructions: TAKES MON, WED, & FRI---BID. Discharge Orders: Discharge Order (Routine); Ordered 07/05/24 Ordered By: Nichelle Prieto Admission Data Admit Date/Time: 07/04/24 15:49 Attending Provider: Danielito Osborne Admit Provider: Saul Fernando Primary Care Provider: Laura Villalba Other Providers: Katt Silva Other Interventions: Discharge Summary Assessment (RN) Last Done: 07/05/24 11:21 Hospital Stay Data Consultations 07/04/24 14:43 ED Decision to Admit Stat Pending Results Patient Have Any Pending Studies at Discharge: No Discharge Instructions Given to Patient (Per Discharging Provider) Mr. Greer, You were hospitalized after having low hemoglobin on outpatient labs. This is likely secondary to your MDS - thankfully your counts have improved after 4 units of blood and you are feeling much better. You are safe to discharge to home today and follow up with Dr. Roach next week. He is aware that you were hospitalized and will likely do repeat blood work soon. If you feel light headed or dizzy or have any signs of GI bleeding please contact your PCP or return to the ER. No changes to your home medications. Thank you for allowing us to participate in your care! Supervising Physician Co-Signing Physician Notes Attending Attestation & Discharge Note: Chart reviewed, discharge care plan d/w PA Nichelle Prieto. I agree w/ the rivero components of her discharge documentation. Of note - I did not perform a bedside visit or perform physical exam on day of discharge. 84yo male with history of MDS, chronic pancytopenia 2nd to MDS, h/o ALL in remission, cirrhosis, CAD. Presented for admission when outpatient labs demonstrated hemoglobin of 4.6. He was transfused a total of 4 units of PRBCs while here with discharge hemoglobin of 7.6. Per records his baseline hemoglobin is mid 7's. Dr Tavon Roach - his primary bar back - was kept informed of pt's admissi on and will f/u with Mr Greer shortly after discharge to ensure stability of his hemoglobin. Of note - recommend B12, folate, and Iron studies as the last documented levels of these in his [facility] chart are from 2022. Despite the pt's severe anemia he was hemodynamically stable during his stay. Danielito Osborne MD Total Time Total Time Spent Total Time Spent (In Minutes): Time spent day of discharge 36 minutes including direct patient care, medication reconciliation, documentation, review of labs and images, and coordination of care. Coding Level of Care Code 73972 INP/OBS DISCH >30 MIN Diagnoses Acute anemia D64.9 Myelodysplastic syndrome D46.9 Pancytopenia D61.818 ALL (acute lymphoid leukemia) in remission C91.01 Cirrhosis of liver without ascites, unspecified hepatic cirrhosis type K74.60 Ascites presence: without ascites Hepatic cirrhosis type: unspecified hepatic cirrhosis"
--- NOTE | 2024-07-05 11:02 | Communication Note ---
Date of Service: July 05, 2024 By CMS guidelines, a determination that the admission or continued stay is not medically necessary has been made by a member of the UR committee and a physici an for this hospital stay, therefore a Code 44 will be completed and the Inpatient admission will be changed to outpatient. Danielito Osborne MD
[2024-07-05 11:05] VITALS: PULSE 54; RESP 19; TEMP 97.7
[2024-07-05 11:22] VITALS: BP 111/58
--- NOTE | 2024-07-06 08:06 | Electrocardiogram Report ---
Test Reason : Blood Pressure : */* mmHG Vent. Rate : 90 BPM Atrial Rate : 90 BPM P-R Int : 256 ms QRS Dur : 110 ms QT Int : 378 ms P-R-T Axes : 57 -25 89 degrees QTcB Int : 462 ms Sinus rhythm with sinus arrhythmia with 1st degree A-V block Left ventricular hypertrophy with repolarization abnormality ( Bakari product ) Abnormal ECG When compared with ECG of 19-Feb-2023 23:50, T wave inversion now evident in Lateral leads Confirmed by Mushtaq Beasley ([id number]) on 07/06/2024 8:06:25 AM Referred By: REFERRED SELF Confirmed By: Mushtaq Beasley
== END 2024-07-05 11:51 | disposition home or self-care (01) | DRG 835 ==
LOC: SUATTDRO → ED 14:05 → INTOOBSV 15:49 → SUATTDRO 15:49 → 2S 15:49